=== PATIENT | female | born 1980 | race Caucasian/White ===

== ENCOUNTER 2017-04-21 23:33 | Emergency (ER) | payer MEDICAID, SELFPAY ==
[2017-04-21 23:35] VITALS: BP 129/80; PULSE 110; RESP 17; TEMP 36.6; O2SAT 97; BMI 30.4
--- NOTE | 2017-04-21 23:48 | RAD_ITS ---
STUDY: X-RAY CHEST REASON FOR EXAM: Female, 36 years old. Cough x3-4 weeks. TECHNIQUE: PA and lateral views of the chest. COMPARISON: 11/19/2016. 02/07/2015. FINDINGS: Stable moderate elevation of the left hemidiaphragm with a little presumed scarring adjacent to the diaphragm. The lungs are clear and expanded. There is no demonstrated pleural abnormality. Normal size heart. Normal mediastinum and carly. Normal visualized pulmonary arteries. Normal visualized aortic arch and descending thoracic aorta. Normal visualized thoracic spine. Normal visualized ribs, clavicles, and shoulders. There is no demonstrated abnormality of the visualized soft tissue structures of the upper abdomen. RAD/Chest PA and Lateral IMPRESSION: No pulmonary edema, congestive heart failure or confluent pneumonia. Stable elevation left hemidiaphragm with scarring in the left base. Electronically Signed: Randi Montiel MD at 0:51 EST , Service support ,
--- NOTE | 2017-04-22 00:56 | ED.VISSUMM ---
- ER Visit Summary Date of Service: 04/22/17 Chief Complaint: Abscess and cough History of Present Illness: The patient is a 36 F who complains of a pimple on the right side of her forehead above her eyebrow for the past 3-4 days. She is concerned because she has a history of MRSA. She states she is squeezed it but it is not draining. She has also had a cough for about 4 weeks. She did complete antibiotics. She denies any sputum. She has had some nausea without vomiting. She denies chest pain or shortness of breath. She does complain of sore throat and a fever last night of 102.4. Physical Examination: Heart rate 110 vitals otherwise normal Patient does have a small superficial abscess in the right forehead above the eyebrow nonfluctuant no drainage no surrounding cellulitis Heart regular rhythm tachycardia Lungs are clear I do not appreciate rales rhonchi or wheezes Abdomen soft Test Results: Chest x-ray shows stable elevation of the left hemidiaphragm but no focal infiltrate or consolidation. Emergency Department Course and Treatment: Patient was prescribed Keflex and Bactrim for her forehead abscess. It is superficial and not fluctuant. I do not believe incision and drainage indicated at this time. She is a smoker. Her persistent cough is likely related to bronchitis. There is no focal pneumonia. She was instructed on supportive care and smoking cessation. Treatment Plan: [] Disposition: Discharge Impression: Bronchitis Facial abscess This note was generated with [employer] dictation software. It may contain incorrect words, spelling, and punctuation that were not noted in review of the chart prior to signing ED Disposition - Plan for ED Patient: Chief Complaint: Cough Referrals: Tomas Reyes MD [Primary Care Provider] -
--- NOTE | 2017-04-22 00:58 | ED.DEP ---
ED Disposition - Plan for ED Patient: Chief Complaint: Cough Instructions: Acute Bronchitis, ED Staph Infec Abx Tx Only Prescriptions: Cephalexin [Keflex] 500 mg PO Q6 #40 cap Smz/Tmp Ds [Bactrim Ds] 1 tab PO BID #20 tab Referrals: Tomas Reyes MD [Primary Care Provider] -
[2017-04-22 01:15] VITALS: O2SAT 100
[2017-04-22 01:16] VITALS: BP 140/91; PULSE 106; RESP 18; O2SAT 99
== END 2017-04-22 01:17 | disposition home or self-care (01) ==
PROVIDERS: Emergency Provider Emergency Medicine; Family Provider Family Medicine; PCP Family Medicine
DX: L02.01 Cutaneous abscess of face (principal); J40 Bronchitis, not specified as acute or chronic; F17.200 Nicotine dependence, unspecified, uncomplicated; Z86.14 Personal history of Methicillin resistant Staphylococcus aureus infection
CPT/HCPCS: 71046; 99282

== ENCOUNTER 2017-06-17 12:28 | Outpatient (REF) | payer SELFPAY | END 2017-06-17 15:30 | disposition home or self-care (01) | LOC: ED 12:28 | DX: Z04.41 Encounter for examination and observation following alleged adult rape (principal) ==

== ENCOUNTER 2017-06-17 13:35 | Emergency (ER) | payer MEDICAID, SELFPAY ==
[2017-06-17 13:52] VITALS: BP 132/107; PULSE 76; RESP 16; TEMP 36.6; O2SAT 95; BMI 29.5
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
--- NOTE | 2017-06-17 14:12 | RAD_ITS ---
STUDY: X-RAY - RIGHT HUMERUS REASON FOR EXAM: Female, 36 years old. Pain. TECHNIQUE: 2 view(s) of the humerus. COMPARISON: None. FINDINGS: Normal visualized humerus. There is no demonstrated fracture or osseous destructive process. There is no demonstrated soft tissue abnormality. RAD/Humerus min 2 Views IMPRESSION: Normal x-ray examination of the humerus. Electronically Signed: Josue Dover MD at 14:39 EDT Tel [phone], Service support ,
--- NOTE | 2017-06-17 14:15 | RAD_ITS ---
STUDY: X-RAY - LEFT ELBOW REASON FOR EXAM: Female, 36 years old. Pain. TECHNIQUE: 3 view(s) of the elbow. COMPARISON: None. FINDINGS: Normal visualized humerus, radius and ulna. Normal radiocapitellar and ulnotrochlear articulations. The soft tissue structures are unremarkable. RAD/Elbow min 3 Views IMPRESSION: Normal x-ray examination of the elbow. Electronically Signed: Josue Dover MD at 14:38 EDT Tel [phone], Service support ,
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
[2017-06-17] MEDS: hydrOXYzine PAM 25 MG Capsule PO (16:55)
== END 2017-06-17 16:59 | disposition home or self-care (01) ==
PROVIDERS: Emergency Provider Emergency Medicine
DX: M25.511 Pain in right shoulder (principal); M25.522 Pain in left elbow; L90.5 Scar conditions and fibrosis of skin
CPT/HCPCS: 73060; 73080; 99282

== ENCOUNTER → 2017-06-22 16:11 | Outpatient (CLI) | payer MEDICAID, SELFPAY ==
[2017-06-22 22:01] LABS: Chlamydia Trachomatis by PCR Negative (Negative); Neisserai gonorrhoeae by PCR Negative (Negative); Probe Check PASS; Sample Adequacy Control PASS; Specimen Processing Control PASS
[2017-06-23 09:47] LABS: HIV - WCH Non-Reactive (Nonreactive)
[2017-06-24 08:53] LABS: HEPATITIS B SURFACE AG Negative (Negative); Hep C Antibodies <0.1 s/co ratio (0.0-0.9)
[2017-06-25 05:01] LABS: Rapid Plasmin Reagin (RPR) NONREACTIVE (NONREACTIVE)
== END ==
PROVIDERS: Visit Provider Obstetrics & Gynecology
DX: Z11.3 Encounter for screening for infections with a predominantly sexual mode of transmission (principal)
CPT/HCPCS: 36415; 86592; 86703; 86803; 87340; 87491; 87591

== ENCOUNTER 2017-07-03 10:27 | Emergency (ER) | payer MEDICAID, SELFPAY ==
[2017-07-03 10:28] VITALS: BP 138/91; PULSE 102; RESP 16; TEMP 35.3; O2SAT 99; BMI 30.7
--- NOTE | 2017-07-03 11:16 | ED.VISSUMM ---
- ER Visit Summary Date of Service: 07/03/17 Chief Complaint: Anxiety History of Present Illness: The patient is a 36 F presents for increasing anxiety since this morning. Denies suicidal or homicidal ideations. Patient states history of methamphetamine use for the past 10 months. She has continued to use this over the last 2 days, last used yesterday. States when drug wears off she has anxiety attacks. She states she was seen here June 17 for repeat evaluation. She states she was seen by guy [facility]ak[facility]ie, Adeola Ny, was given a card and was told she was a candidate for inpatient management. She did not call for follow-up. Patient denies any alcohol use. Admits to tobacco. States she had previous opiate abuse with treatment in the past. Denies any recent uses. She states she was in treatment at [facility] in July of last year for her illicit drug use. No treatment since. She does follow [address] [place] [address]. Anxiety and depression history on Cymbalta and BuSpar. Denies any homicidal or suicidal ideations. No auditory or visual hallucinations. She is requesting detox through [facility]. Physical Examination: General: Alert and oriented ?3, no acute distress HEENT: Normocephalic, atraumatic. Moist mucosa membranes Neck: supple, nontender. Cardiovascular: Regular rate and rhythm, no murmurs Respiratory: Normal breath sounds, symmetric, no distress Abdomen: Soft, nontender, nondistended Extremities: Nontender, no edema, pulses intact ?4 Neuro: no focal neurological deficits. Psych: No suicidal ideations. No homicidal ideations. She is tearful, cooperative. Test Results: [] Emergency Department Course and Treatment: Patient not suicidal or homicidal. Patient requesting methamphetamine detox. I am not aware of any protocol for this. Due to patient stating she spoke with Gini & Jonybennie 2 weeks ago. I did discuss with hospitalist, Dr. Hyde. She is also unaware of any protocol. She did evaluate patient in the ED. Discussed with patient treatment plan with mirtazapine and follow with her PCP for adjustments. Patient understands and agrees with plan. She will be discharged with outpatient follow-up. Treatment Plan: [] Disposition: Discharge Impression: 1. Anxiety 2. Methamphetamine use This note was generated with [employer] dictation software. It may contain incorrect words, spelling, and punctuation that were not noted in review of the chart prior to signing ED Disposition - Plan for ED Patient: Disposition: Home or Assisted Living Chief Complaint: Anxiety Diagnosis: Anxiety, Methamphetamine use Instructions: Understanding Methamphetamine Abuse and Addiction, ED Drug Abuse General Prescriptions: Mirtazapine 15 mg PO QHS #30 tab.rapdis Referrals: STEPHEN Rob [Primary Care Provider] - Tomas Reyes MD [STAFF PHYSICIAN] - 3-5 Days
--- NOTE | 2017-07-03 11:19 | ED.DCSUM_ITS ---
- ER Visit Summary Date of Service: 07/03/17 Chief Complaint: Anxiety History of Present Illness: The patient is a 36 F presents for increasing anxiety since this morning. Denies suicidal or homicidal ideations. Patient states history of methamphetamine use for the past 10 months. She has continued to use this over the last 2 days, last used yesterday. States when drug wears off she has anxiety attacks. She states she was seen here June 17 for repeat evaluation. She states she was seen by guy Wellpartnerbennie, Adeola Ny, was given a card and was told she was a candidate for inpatient management. She did not call for follow-up. Patient denies any alcohol use. Admits to tobacco. States she had previous opiate abuse with treatment in the past. Denies any recent uses. She states she was in treatment at [facility] in July of last year for her illicit drug use. No treatment since. She does follow [address] [place] [address]. Anxiety and depression history on Cymbalta and BuSpar. Denies any homicidal or suicidal ideations. No auditory or visual hallucinations. She is requesting detox through [facility]. Physical Examination: General: Alert and oriented ?3, no acute distress HEENT: Normocephalic, atraumatic. Moist mucosa membranes Neck: supple, nontender. Cardiovascular: Regular rate and rhythm, no murmurs Respiratory: Normal breath sounds, symmetric, no distress Abdomen: Soft, nontender, nondistended Extremities: Nontender, no edema, pulses intact ?4 Neuro: no focal neurological deficits. Psych: No suicidal ideations. No homicidal ideations. She is tearful, cooperative. Test Results: [] Emergency Department Course and Treatment: Patient not suicidal or homicidal. Patient requesting methamphetamine detox. I am not aware of any protocol for this. Due to patient stating she spoke with Arkmicrobennie 2 weeks ago. I did discuss with hospitalist, Dr. Hyde. She is also unaware of any protocol. She did evaluate patient in the ED. Discussed with patient treatment plan with mirtazapine and follow with her PCP for adjustments. Patient understands and agrees with plan. She will be discharged with outpatient follow-up. Treatment Plan: [] Disposition: Discharge Impression: 1. Anxiety 2. Methamphetamine use This note was generated with [employer] dictation software. It may contain incorrect words, spelling, and punctuation that were not noted in review of the chart prior to signing ED Disposition - Plan for ED Patient: Disposition: Home or Assisted Living Chief Complaint: Anxiety Diagnosis: Anxiety, Methamphetamine use Instructions: Understanding Methamphetamine Abuse and Addiction, ED Drug Abuse General Prescriptions: Mirtazapine 15 mg PO QHS #30 tab.rapdis Referrals: STEPHEN Rob [Primary Care Provider] - Tomas Reyes MD [STAFF PHYSICIAN] - 3-5 Days
--- NOTE | 2017-07-03 12:03 | PCM.DC ---
- Discharge Diagnoses Current Active Problems: Meth Abuse, Withdrawal Anxiety and Depression Tobacco use Obesity History of Remote Heroin Abuse (Clean since 06/2015) You will use the following diet at home:: No restrictions Your food should be the consistency of: Regular Your liquids should be the consistency of: Regular/Thin Discharge Activity: - - Encourage regular activity daily, improved diet with fresh fruits and vegetables as well as continued aggressive behavioral therapy with [facility]. Call your doctor if you observe: Fever of 101 or Higher, Inability to urinate, Inability to have a bowel movement, Shortness of breath, Dizziness, Chest pain, Uncontrolled pain Instructions: Understanding Methamphetamine Abuse and Addiction, ED Drug Abuse General Additional Instructions: Given you have not been taking your cymbalta this has been taken off your regimen list. You have been started on mirtazapine to assist with treatment of methamphetamine use and concurrent anxiety and depression. Please follow-up with your primary care physician to increase this regimen or alter as needed to achieve best results. It is important that you take your medications as instructed. Also, it is vital that with [facility] you continue cognitive behavioral therapy and initiate an activity pathway: (1) Develop a plan for when you note yourself more likely to attempt usage again, i.e. if you tend to want to use again when you are by yourself or in certain situations, then develop a plan to have an intervention to avoid these situations when needed. (2) Contact [facility] or meth abuse help hotline for discussion when you feel like using again to discuss options and interventions at that time. (3) It is vital that you follow closely with your primary care physician to attempt to improve, evaluate and treatment your psychiatric disorders (anxiety and depression) to assist with healthy behavioral developement to achieve drug free, clean status. Allergies/Adverse Reactions: Allergies No Known Allergies Allergy (Verified 07/03/17 10:27) Medications to take at Discharge busPIRone [Buspar] 15 mg PO DAILY 06/17/17 Mirtazapine 15 mg PO QHS #30 tab.rapdis 07/03/17 The following prescriptions were given: Mirtazapine 15 mg PO QHS #30 tab.rapdis Primary Care Physician: STEPHEN Rob [Primary Care Provider] - Please follow up with your Primary Care Physician in: Follow-up with Dr. Leija within 3-5 days to review ED evaluation. Please Follow Up With: [facility] When: Contact the program upon ED discharge to review recent visit and concerns. Proposed Discharge Date: 07/03/17
--- NOTE | 2017-07-03 12:11 | PCM.CONS.GEN ---
Problem List (1) Anxiety and depression Status: Chronic (2) Tobacco use Status: Chronic (3) Methamphetamine use Status: Acute (4) Heroin use Status: Resolved Comment: Clean from heroin since 06/24/15 Reason for Consult Date of Consultation: 07/03/17 Reason for Consultation: Methamphetamine abuse History of Present Illness: The patient is a 36 y/o F w/ PMHx: Tobacco use, History of Remote Heroine Abuse clean since 06/24/2015, Anxiety and Depression uncontrolled with no SI, Obesity who presents to the [facility] ED on 07/03/17 with history of usage of smoked methamphetamine ~ 20-40 $ daily with recent serial attempts to stop, noted to have been clean intermittently over the last several weeks with periodic relapses following w/ [facility] who notes difficulty with staying clean and request for intervention. Discussed methamphetamine abuse at length with patient and concept that there is no specific acute withdrawal program in the [facility]. Discussed options for outpatient treatment and patient following discussions amenable to start on mirtazapine with dose alterations per PCP at routine follow-up. She had been on cymbalta she notes, recently started but had stopped taking this medication. The importance of taking medications as rx was discussed thoroughly also in light of this admission. She noted that she has been performing CBT with the [facility] but when discussed concepts of safety plans she is unable to give any details. She notes that she is currently in a custody saunders for her daughter and that this stress has been adding to her usage desires. Encouraged safe environments and plan as discussed. Past Medical History Past Medical History (Chronic Problems): Chronic Problems Anxiety and depression (Chronic) Tobacco use (Chronic) Ovarian cyst (Chronic) Pelvic pain (Chronic) Dysmenorrhea (Chronic) Menorrhagia with irregular cycle (Chronic) Allergies No Known Allergies Allergy (Verified 07/03/17 10:27) Home Medications: Ambulatory Orders Medication Instructions Recorded busPIRone [Buspar] 15 mg PO DAILY 06/17/17 Mirtazapine 15 mg PO QHS #30 tab.rapdis 07/03/17 Surgical History: - - Hysterectomy, , right oophorectomy. Psychiatric History: Anxiety, Depression [employer] History: - - History of dysmenorrhea. Lives: Roommate - Patient notes living with a roommate who is supportive and does not use drugs or alcohol. This roommate is currently out of town secondary to loss/illness of family member. Smoking Status: Current every day smoker - Patient notes 1 pack per day tobacco cigarette usage. Tobacco Use: Cigarettes Alcohol: None Drugs: - - Methamphetamines with approximately $30-$40 usage per day, smoked. - *Family History Maternal History Items: - - Patient notes a maternal and paternal family history of heart disease and hypertension. Paternal History Items: - - Patient notes a maternal and paternal family history of heart disease and hypertension. Review of Systems Constitutional: Reports: Anorexia, Malaise, Weakness, Fatigue. Denies: Chills, Fever, Weight Change HEENT: Reports: Head Aches, Post Nasal Drip, Sinus Congestion, Sinus Drainage Cardiovascular: Denies: Chest Pain, Palpitations Respiratory: Reports: Cough. Denies: Shortness of breath at rest, Sputum production Gastrointestinal: Reports: Nausea. Denies: Abdominal Pain, Vomiting Genitourinary: Denies: Dysuria Musculoskeletal: Denies: Joint Pain, Joint Tenderness Skin: Denies: Rash, Wounds Neurological: Denies: Numbness, Tingling, Focal weakness Psychiatric: Reports: Anxiety, Depression. Denies: Homicidal Ideations, Suicidal Ideations Hematologic/ Lymphatic: Denies: Easy Bruising, Easy Bleeding Subjective: Patient seated upright in the ED bed, tearful during examination and discussions, poor insight into current status. Objective: Physical Examination: General: awake, alert, oriented x 3 and cooperative, seated upright in the ED bed in no apparent distress although emotional during examination. Skin: normal color, turgor, no icterus, cyanosis. HEENT: AT/NC, EOMI, PERRLA, mildly dry MM, congested, mild scleral injection suspected from crying. Lungs: CTA bilaterally, moderate effort, mild decrease BL bases, no rales, ronchi or wheezing. Heart: Regular rate and rhythm; no gallop, rub audible. Abdomen: soft, obese, NTTP, ND, normal BS, no HSM. Extremities: no cyanosis, clubbing, or edema. Neurological: patient awake, alert, oriented x 3; cognitive function intact; pupils equally reactive to light and accomodation; cranial nerves II-XII grossly normal, moving all 4 extremities, no focal deficits, strength preserved. Psychiatric: affect appears fatigued, tearful, no SI but notes depressed feelings and anxiety feelings. - Physical Exam Vital Signs Temp Pulse Resp BP Pulse Ox 95.5 F L 102 H 16 138/91 H 99 07/03/17 10:28 07/03/17 10:28 07/03/17 10:07/03/17 10:07/03/17 10:28 Oxygen Delivery Method Room Air Weight: 185 lb Body Mass Index (BMI) 30.7 Assessment/Plan The patient is a 36 y/o F w/ PMHx: Tobacco use, History of Remote Heroine Abuse clean since 06/24/2015, Anxiety and Depression uncontrolled with no SI, Obesity who presents to the [facility] ED on 07/03/17 with history of usage of smoked methamphetamine ~ 20-40 $ daily with recent serial attempts to stop, noted to have been clean intermittently over the last several weeks with periodic relapses following w/ [facility] who notes difficulty with staying clean and request for intervention. (1) Methamphetamine abuse, Withdrawal: Discussed patient's status and usage currently only methamphetamine, already following with [facility], encouraged continuation with program and update to current ED visit. Following discussion with the ED physician and patient will remove Cymbalta from patient home med list as she has not been taking this and start mirtazapine to assist with methamphetamine withdrawal as well as anxiety and depression with close primary care physician follow-up to increased dose slowly. Also discussed importance of cognitive behavioral therapy which can be arranged with primary care physician and [facility]. Discussed concept of safety planning to avoid situations where she is most likely to relapse and importance of developing healthy habits. Patient discharged to home per the emergency room physician at their discretion. (2) Anxiety and depression: Contains currently on BuSpar outpatient, stopped taking her Cymbalta and from discussions not taking it as prescribed. Discussed need to take medications as prescribed at length especially antidepressant medication. Discussed current options and given patient discontinuation of Cymbalta, only recently started will start mirtazapine given concurrent methamphetamine abuse to assist with anxiety and depression as well as withdrawal. Strongly encouraged and advised cognitive behavioral therapy and close follow-up with primary care physician to increase mirtazapine. (3) Tobacco Abuse: Encouraged cessation, inpatient consultation per [facility], NR if desired. (4) Polysubstance abuse, former heroin usage: Notes clean from heroine usage since 06/24/15, encouraged strongly continued avoidance, encouraged HIV, hepatitis assessment with PCP. (5) Obesity: Weight loss and lifestyle changes encouraged. Code Visit Office Visits / Consults: 12533 OP Consult L3 - ED consultation [id number]
[2017-07-03 12:21] VITALS: BP 132/97; PULSE 70; RESP 16; O2SAT 99
== END 2017-07-03 12:38 | disposition home or self-care (01) ==
PROVIDERS: Emergency Provider Emergency Medicine
DX: F41.9 Anxiety disorder, unspecified (principal); F15.93 Other stimulant use, unspecified with withdrawal; F32.9 Major depressive disorder, single episode, unspecified; E66.9 Obesity, unspecified; F19.11 Other psychoactive substance abuse, in remission; F17.210 Nicotine dependence, cigarettes, uncomplicated; Z79.899 Other long term (current) drug therapy
CPT/HCPCS: 99282

== ENCOUNTER 2017-07-04 00:45 | Emergency (ER) | payer MEDICAID, SELFPAY ==
[2017-07-04 00:46] VITALS: BP 145/91; PULSE 110; RESP 15; TEMP 36.7; BMI 30.2
[2017-07-04] MEDS: LORazepam 1 MG Tablet PO (01:28)
--- NOTE | 2017-07-04 01:48 | ED.VISSUMM ---
- ER Visit Summary Date of Service: 07/04/17 Chief Complaint: Anxiety History of Present Illness: The patient is a 36 F presenting for evaluation secondary to anxiety. Patient has a underlying history of methamphetamine use. Patient states that she most recently used today. Patient presented to the emergency department earlier today requesting to be placed in the detox program. After evaluation, the patient was discharged with follow-up with detox, and was placed on Remeron to help with withdrawal symptoms. Patient states that she is having continued anxiety and difficulty sleeping. She states that her medications are not helping. Additionally the patient states that she has a history of skin infections with MRSA and feels that she is having a breakout. She denies any presence of fevers. Patient does endorse depression and anxiety but is not suicidal homicidal or hallucinating. Physical Examination: Vital signs are within normal limits except for tachycardia with a rate of 110, patient is afebrile. General: Patient is well-nourished well-developed and in no acute distress. Head: Normocephalic, atraumatic Eyes: Pupils equal round and reactive bilaterally, extra occular motion intact bialterally ENT: Moist mucous membranes Neck: Supple, no lymphadenopathy, no JVD, no meningismus CVS: Heart regular rhythm with tachycardia, no murmurs, rubs or gallops, radial pulses 2+ bilaterally Resp: Respirations nondistressed, lung sounds clear bilaterally Abdomen: Soft, nontender, nondistended, no palpable masses, normal bowel sounds Back: Nontender Extremities: Nontender, atraumatic, active full range of motion, no peripheral edema Skin: warm, no rashes, no petechia Neuro: Alert and oriented x 4, CN 2-12 intact, no lateralizing neurological defecits Psyc: Normal affect, no suicidal or homicidal ideation Test Results: None indicated Emergency Department Course and Treatment: Patient presented secondary to anxiety. I reviewed patient's records from earlier today, she was evaluated both by the emergency physician as well as the hospitalist, and was discharged on Remeron. Patient was given a take-home dose of Ativan in the emergency department as she did drive herself. Patient does have multiple pockmarks on her skin, she will be placed on doxycycline and Bactroban. Reviewed the dosage recommendations for Remeron, and recommended the patient increase her dose from 15 mg to 30 mg once daily. Patient will follow up with the [facility] program for detox on Wednesday. Disposition: Discharge Impression: 1. Methamphetamine use 2. History of MRSA This note was generated with [employer] dictation software. It may contain incorrect words, spelling, and punctuation that were not noted in review of the chart prior to signing ED Disposition - Plan for ED Patient: Disposition: Home or Assisted Living Chief Complaint: Anxiety Diagnosis: Methamphetamine addiction Instructions: Understanding Methamphetamine Abuse and Addiction Prescriptions: Doxycycline Hyclate 1 tab PO BID #20 cap Mupirocin [Bactroban] 1 applic TOPICAL TID #1 tube Referrals: Tomas Reyes MD [Primary Care Provider] - Additional Instructions: Double your dose or remeron to 30mg nightly Followup [facility] Wednesday
[2017-07-04 02:01] VITALS: PULSE 86; RESP 16; O2SAT 98
== END 2017-07-04 02:01 | disposition home or self-care (01) ==
PROVIDERS: Emergency Provider Emergency Medicine; Family Provider Family Medicine; PCP Family Medicine
DX: F15.90 Other stimulant use, unspecified, uncomplicated (principal); F32.9 Major depressive disorder, single episode, unspecified; F41.9 Anxiety disorder, unspecified; Z79.899 Other long term (current) drug therapy; Z86.14 Personal history of Methicillin resistant Staphylococcus aureus infection
CPT/HCPCS: 99282

== ENCOUNTER 2017-07-06 23:59 | Outpatient (REF) | payer SELFPAY | END 2017-07-07 04:00 | disposition home or self-care (01) | LOC: EDREF 23:59 | DX: Z04.41 Encounter for examination and observation following alleged adult rape (principal) ==

== ENCOUNTER 2017-07-07 01:49 | Emergency (ER) | payer MEDICAID, SELFPAY ==
[2017-07-07 02:30] VITALS: BP 122/78; PULSE 76; RESP 18; TEMP 36.8; O2SAT 97; BMI 24.3
[2017-07-07 02:46] LABS: Absolute Neutrophil Count 1.5 X10^3/uL (2.0-7.7); Basophil# 0.02 X10^3/uL; Basophil% 0.4 % (0-1); Eosinophil# 0.01 X10^3/uL; Eosinophils% 0.2 % (0-5); Hematocrit 40.2 % (37-47); Hemoglobin 13.8 g/dl (12.0-15.0); Mean Corp Hgb Conc 34.3 g/gl (32-36); Mean Corpuscular Volume 90.3 fL (81-99); Mean Platelet Vol. 8.8 fl (6.2-12.0); Monocyte# 0.66 X10^3/uL; Neutrophil % 29.4 % (47-70); Platelet Count 268 K/mm3 (150-450); RBC Distribution Width CV 11.8 % (11.6-14.6); RBC Distribution Width SD 38.7 fl (35.1-43.9); Red Blood Count 4.45 M/mm3 (4.2-5.4); White Blood Count 5.1 K/mm3 (4.4-11.0)
[2017-07-07 02:49] LABS: POSITIVE COUNT NO; POSITIVE DIFFERENTIAL NO; POSITIVE MORPHOLOGY NO
[2017-07-07 02:59] LABS: Amphetamine Urine VISTA POSITIVE (<1000 ng/mL); Barbiturate Urine VISTA NEGATIVE (< 200 ng/mL); Benzodiazepine Urine VISTA POSITIVE (< 200 ng/mL); Cocaine Urine VISTA NEGATIVE (< 300 ng/mL); Ecstacy Urine VISTA POSITIVE (< 500 ng/mL); Methadone Urine VISTA NEGATIVE (< 300 ng/mL); PCP Urine VISTA NEGATIVE (< 25 ng/mL); THC Urine VISTA POSITIVE (< 50 ng/mL); Vista UDS pH Range 5
[2017-07-07 03:09] LABS: AST(SGOT) 9 U/L (15-37); Alanine Aminotransfer ALT/SGPT 19 U/L (13-56); Albumin, Serum 3.8 g/dL (3.2-5.0); Alkaline Phosphatase 84 U/L (45-117); Anion Gap 8 (5-15); BUN 11 mg/dL (7-18); BUN/Creat Ratio 13.7 RATIO (10-20); Calcium,Total 8.9 mg/dL (8.5-10.1); Chloride 104 mmol/L (98-107); EST Glomerular Filtration Rate 85 mL/min (>60); Est Glom Filt Rate - Afr Amer 103 mL/min (>60); Estimated Creatinine Clearance 92.72 ml/min; Globulin 3.7 g/dL (2.2-4.2); Glucose 93 mg/dL (74-106); Potassium 3.3 mmol/L (3.5-5.1); Protein, Total 7.5 g/dL (6.4-8.2); Sodium Level 140 mmol/L (136-145)
[2017-07-07 03:11] LABS: Alcohol, Blood (Medical)-Serum < 3.0 mg/dL
[2017-07-07 03:58] LABS: Pregnancy, Serum, hCG Quali. NEGATIVE Negative (0-9 Nonpreg)
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
[2017-07-07 05:43] VITALS: RESP 16
== END 2017-07-07 05:45 | disposition home or self-care (01) ==
PROVIDERS: Emergency Provider Emergency Medicine; Family Provider Family Medicine; PCP Family Medicine
DX: Z04.41 Encounter for examination and observation following alleged adult rape (principal); F15.20 Other stimulant dependence, uncomplicated; T14.8XXA Other injury of unspecified body region, initial encounter; X58.XXXA Exposure to other specified factors, initial encounter; Y93.9 Activity, unspecified; Y92.9 Unspecified place or not applicable; Y99.9 Unspecified external cause status
CPT/HCPCS: 80053; 80307; 80320; 84703; 85025; 99283; G0480

== ENCOUNTER 2017-08-21 10:44 | Emergency (ER) | payer MEDICAID, SELFPAY ==
[2017-08-21 10:45] VITALS: BP 151/84; PULSE 94; RESP 18; TEMP 36.9; O2SAT 97; BMI 29.3
--- NOTE | 2017-08-21 10:56 | ED.DCSUM_ITS ---
- ER Visit Summary Date of Service: 08/21/17 Chief Complaint: Tooth pain History of Present Illness: The patient is a 36 F who presents with pain after dental extraction. The tooth was extracted 6 days ago. She has pain in that area. She is concerned about some food getting into the area. She does have a history of MRSA. She has been trying ibuprofen 800s without any relief. Denies any fevers. Physical Examination: Vital signs are reviewed. HEENT exam reveals a healing extraction site on the right lower side. There is no abscess noted. No food particulate I can see in the wound. The rest the exam is unremarkable Test Results: [] Emergency Department Course and Treatment: Patient will be given antibiotics as well as naproxen for home. I did give her a syringe to keep the area free of any food particulate. Treatment Plan: [] Disposition: Discharge Impression: Postextraction dental pain This note was generated with [employer] dictation software. It may contain incorrect words, spelling, and punctuation that were not noted in review of the chart prior to signing ED Disposition - Plan for ED Patient: Chief Complaint: Dental Referrals: Tomas Reyes MD [Primary Care Provider] -
--- NOTE | 2017-08-21 10:56 | ED.DEP ---
ED Disposition - Plan for ED Patient: Disposition: Home or Assisted Living Chief Complaint: Dental Instructions: ED Tooth Pain Prescriptions: Naproxen [Naprosyn] 500 mg PO BID PRN #20 tab Clindamycin [Cleocin] 300 mg PO 4X/DAY #80 cap Referrals: Tomas Reyes MD [Primary Care Provider] -
== END 2017-08-21 11:11 | disposition home or self-care (01) ==
LOC: ED 11:03
PROVIDERS: Emergency Provider Emergency Medicine; Family Provider Family Medicine; PCP Family Medicine
DX: K08.89 Other specified disorders of teeth and supporting structures (principal); Z98.818 Other dental procedure status; Z72.0 Tobacco use; Z79.899 Other long term (current) drug therapy; Z86.14 Personal history of Methicillin resistant Staphylococcus aureus infection
CPT/HCPCS: 99282

== ENCOUNTER 2017-09-13 17:48 | Emergency (ER) | payer MEDICAID, SELFPAY ==
[2017-09-13 17:48] VITALS: BP 145/81; PULSE 100; RESP 18; TEMP 36.6; O2SAT 100; BMI 28.7
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
[2017-09-13] MEDS: Naproxen 500 MG Tablet PO (18:37)
--- NOTE | 2017-09-13 19:07 | ED.DCSUM_ITS ---
- ER Visit Summary Date of Service: 09/13/17 Chief Complaint: Left fifth toe pain History of Present Illness: The patient is a [address] Reyes. She reports that she stubbed her left fifth toe on a metal chair today. She is throbbing pain is 9 out of 10 with walking and 7 out of 10 at rest. She is not taking anything for this. She denies any other complaints. Physical Examination: Vitals: Stable. Afebrile. General: Well-nourished and well-developed. Head: Normocephalic atraumatic. Neck: Supple, no lymphadenopathy. No JVD. Nontender. Cardiovascular: Regular rate and rhythm. No murmurs. Respiratory: No respiratory distress. Clear to auscultation bilaterally. Abdominal: Soft, nontender, nondistended, normal bowel sounds. No guarding, rebound, or peritoneal signs. Back: Nontender. Extremities: Mild soft tissue swelling and moderate tenderness palpation to her left fifth toe. There is contusion. Skin: Normal color, no rash. Neurologic: Alert and oriented ?3. Cranial nerves II through XII are intact. Normal strength and sensation. Psych: Normal affect. Test Results: X-ray is negative Emergency Department Course and Treatment: Patient was treated with naproxen. Treatment Plan: Patient be discharged in a postop shoe. Instructed with Dr. Reyes and week if not improving. Disposition: To home in improved and stable condition. Impression: 1. Left fifth toe contusion. This note was generated with [employer] dictation software. It may contain incorrect words, spelling, and punctuation that were not noted in review of the chart prior to signing ED Disposition - Plan for ED Patient: Disposition: Home or Assisted Living Chief Complaint: Lower Extremity Injury Instructions: ED Sprain Toe Prescriptions: Naproxen [Naprosyn] 500 mg PO BID #14 tablet Referrals: Tomas Reyes MD [Primary Care Provider] - 1 Week if not improving
[2017-09-13 19:21] VITALS: RESP 18
== END 2017-09-13 19:21 | disposition home or self-care (01) ==
LOC: ED 18:31
PROVIDERS: Emergency Provider Emergency Medicine; Family Provider Family Medicine; PCP Family Medicine
DX: S90.122A Contusion of left lesser toe(s) without damage to nail, initial encounter (principal); W22.03XA Walked into furniture, initial encounter; Y93.9 Activity, unspecified; Y92.9 Unspecified place or not applicable; Y99.9 Unspecified external cause status; Z72.0 Tobacco use
CPT/HCPCS: 73660; 99283

== ENCOUNTER 2017-09-30 14:00 | Emergency (ER) | payer MEDICAID, SELFPAY ==
[2017-09-30 14:01] VITALS: BP 122/81; PULSE 97; RESP 32; TEMP 37.1; O2SAT 97; BMI 28.7
[2017-09-30 15:03] VITALS: O2SAT 100
--- NOTE | 2017-09-30 15:03 | EKG12_ITS ---
Test Reason : CP Blood Pressure : / mmHG Vent. Rate : 092 BPM Atrial Rate : 092 BPM P-R Int : 122 ms QRS Dur : 098 ms QT Int : 358 ms P-R-T Axes : 023 038 053 degrees QTc Int : 442 ms Normal sinus rhythm Normal ECG Confirmed by BREONNA NORTH, TREMAINE ([id number]), editor & co founder ANGEL FUNK ([id number] on 10/05/2017 2:45:23 PM Referred By: FLOYD Confirmed By:TREMAINE RAVI MD
--- NOTE | 2017-09-30 15:03 | RAD_ITS ---
STUDY: X-RAY CHEST REASON FOR EXAM: Female, 37 years old. Chest pain TECHNIQUE: Single AP portable view of the chest. COMPARISON: 04/21/2017 FINDINGS: Cardiac monitoring leads overlie the chest. There is elevation of the left hemidiaphragm. There is left basilar atelectasis or scar. There is no demonstrated pleural abnormality. Normal size heart. Normal mediastinum and carly. Normal visualized pulmonary arteries. Normal visualized aortic arch and descending thoracic aorta. There is mild dextrocurvature of the thoracic spine. Normal visualized ribs, clavicles, and shoulders. There is no demonstrated abnormality of the visualized soft tissue structures of the upper abdomen. RAD/Chest 1 View (Portable) IMPRESSION: Minimal left basilar atelectasis or scar. Similar elevation of the left hemidiaphragm. Electronically Signed: Dustin Washington DO at 15:23 EDT Tel , Service support ,
--- NOTE | 2017-09-30 15:05 | ED.VISSUMM ---
- ER Visit Summary Date of Service: 09/30/17 Chief Complaint: Chest pain, blisters on feet History of Present Illness: The patient is a 37 F who complains of his pain and blisters on her feet. She has had this pain for 2 days. She describes as a tightness in her sternal area. Does not radiate. Nothing makes it better or worse. She does have associated shortness of breath. She says she has a chronic cough which she describes as chronic bronchitis. She is currently living at the [facility] and really there has a cough. She also complains of these blisters on her feet. She does have a history of MRSA. Physical Examination: Vital signs reviewed. HEENT exam unremarkable. Heart is regular rate and rhythm without murmurs. Lungs are clear to auscultation. Chest is nontender. Abdomen is soft and nontender. Extremities reveal no edema. Peripheral pulses are equal. Skin exam shows some broken blisters on the feet. No drainage or bleeding. No erythema.. Neurologic exam normal. Test Results: EKG is sinus rhythm with rate of 92. No ST changes. Chest x-ray reveals chronic scarring. Labs are normal. Emergency Department Course and Treatment: Patient was given albuterol and aspirin. She feels better after albuterol treatment. Patient will be discharged with an albuterol inhaler. She will follow-up with her PCP. Treatment Plan: [] Disposition: Discharge Impression: Chest pain, chronic bronchitis This note was generated with [employer] software. It may contain incorrect words, spelling, and punctuation that were not noted in review of the chart prior to signing ED Disposition - Plan for ED Patient: Chief Complaint: Chest Pain Referrals: Tomas Reyes MD [STAFF PHYSICIAN] -
[2017-09-30] MEDS: Aspirin 81 MG TAB.CHEW 324 MG PO (15:12)
[2017-09-30 15:14] LABS: Absolute Lymphocyte Count 1.81 X10^3/ul (0.83-4.51); Absolute Neutrophil Count 2.9 X10^3/uL (2.0-7.7); Basophil# 0.02 X10^3/uL; Basophil% 0.4 % (0-1); Eosinophil# 0.04 X10^3/uL; Eosinophils% 0.7 % (0-5); Lymphocyte # 1.81 X10^3/ul (4.0); Lymphocyte % 33.3 % (19-41); Mean Corp Hgb Conc 33.3 g/gl (32-36); Mean Corpuscular Hgb 30.7 pg (27.0-32.0); Mean Corpuscular Volume 92.2 fL (81-99); Mean Platelet Vol. 9.3 fl (6.2-12.0); Monocyte# 0.68 X10^3/uL; Monocyte% 12.5 % (0-10); Neutrophil # 2.88 X10^3/uL (2.7-7.7); Neutrophil % 53.1 % (47-70); Platelet Count 312 K/mm3 (150-450); RBC Distribution Width CV 12.3 % (11.6-14.6); RBC Distribution Width SD 41.4 fl (35.1-43.9); Red Blood Count 4.23 M/mm3 (4.2-5.4); White Blood Count 5.4 K/mm3 (4.4-11.0)
[2017-09-30 15:21] LABS: POSITIVE COUNT NO; POSITIVE DIFFERENTIAL NO; POSITIVE MORPHOLOGY NO
[2017-09-30 15:26] LABS: Anion Gap 6 (5-15); BUN 14 mg/dL (7-18); BUN/Creat Ratio 16.9 RATIO (10-20); Calcium,Total 8.3 mg/dL (8.5-10.1); Chloride 109 mmol/L (98-107); Creatinine, Serum 0.83 mg/dL (0.55-1.02); EST Glomerular Filtration Rate 81 mL/min (>60); Est Glom Filt Rate - Afr Amer 99 mL/min (>60); Estimated Creatinine Clearance 85.19 ml/min; Glucose 78 mg/dL (74-106); Potassium 3.6 mmol/L (3.5-5.1); Sodium Level 143 mmol/L (136-145)
[2017-09-30 15:36] VITALS: PULSE 104; RESP 20
[2017-09-30] MEDS: Albuterol 2.5 MG/3 ML VIAL.NEB. INHALATION (15:36)
--- NOTE | 2017-09-30 15:38 | ED.DEP ---
ED Disposition - Plan for ED Patient: Disposition: Home or Assisted Living Chief Complaint: Chest Pain Instructions: ED Chest Pain NonCardiac Prescriptions: Albuterol Inhaler [Ventolin Hfa] 1 - 2 puff INHALATION Q4H PRN PRN #1 inhaler PRN Reason: Wheezing Referrals: Tomas Reyes MD [STAFF PHYSICIAN] -
[2017-09-30 16:40] VITALS: BP 118/90; PULSE 95; RESP 26; O2SAT 100
== END 2017-09-30 16:42 | disposition home or self-care (01) ==
PROVIDERS: Emergency Provider Emergency Medicine
DX: J42 Unspecified chronic bronchitis (principal); R07.9 Chest pain, unspecified; S90.822A Blister (nonthermal), left foot, initial encounter; S90.821A Blister (nonthermal), right foot, initial encounter; X58.XXXA Exposure to other specified factors, initial encounter; Y93.9 Activity, unspecified; Y92.9 Unspecified place or not applicable; Y99.9 Unspecified external cause status; Z72.0 Tobacco use; Z86.14 Personal history of Methicillin resistant Staphylococcus aureus infection
CPT/HCPCS: 71045; 80048; 84484; 85025; 93005; 94640; 99285; A4216

== ENCOUNTER 2017-10-03 22:05 | Emergency (ER) | payer MEDICAID, SELFPAY ==
[2017-10-03 22:07] VITALS: BP 128/74; PULSE 116; RESP 18; TEMP 36.1; O2SAT 97; BMI 32.1
--- NOTE | 2017-10-03 22:50 | ED.VISSUMM ---
- ER Visit Summary Date of Service: 10/03/17 Chief Complaint: Blisters on my feet History of Present Illness: The patient is a 37 F history of prior psychiatric illness which she denies currently. Also history of marijuana and amphetamine abuse. Patient states that she has blisters on her feet. She says these are not being addressed. [facility]. Currently is homeless. Physical Examination: Well appearing female. Vital signs are stable afebrile. She does not look septic, toxic or in any distress whatsoever. H EENT exam unremarkable well-hydrated. Moist mucous membranes. Neck nontender no lymphadenopathy. Lungs clear to auscultation bilaterally. Heart regular rate and rhythm no murmur rate about 100. Abdomen is soft and nontender normal bowel sounds without peritoneal signs. Moving all 4 extremities. Neurovascularly intact. Calves nontender without edema. She has a few blisters that have ruptured on her feet. There is no signs of infection. Normal range of motion of both upper and lower extremities. Normal strength and sensation. Back exam normal. Neurologically she is awake and alert with no focal motor deficits. Test Results: None Emergency Department Course and Treatment: No labs or workup are necessary. I explained to the patient these blisters just need to be cleaned daily and prevent it from getting infected. Treatment Plan: Discharged with wound care. Disposition: Discharge Impression: Blisters on her feet Malingering This note was generated with [employer] dictation software. It may contain incorrect words, spelling, and punctuation that were not noted in review of the chart prior to signing ED Disposition - Plan for ED Patient: Chief Complaint: General Illness Referrals: Care Physician,No Primary [Primary Care Provider] -
--- NOTE | 2017-10-03 22:53 | ED.DCSUM_ITS ---
- ER Visit Summary Date of Service: 10/03/17 Chief Complaint: Blisters on my feet History of Present Illness: The patient is a 37 F history of prior psychiatric illness which she denies currently. Also history of marijuana and amphetamine abuse. Patient states that she has blisters on her feet. She says these are not being addressed. [facility] was [facility] leave. Currently is homeless. Physical Examination: Well appearing female. Vital signs are stable afebrile. She does not look septic, toxic or in any distress whatsoever. H EENT exam unremarkable well-hydrated. Moist mucous membranes. Neck nontender no lymphadenopathy. Lungs clear to auscultation bilaterally. Heart regular rate and rhythm no murmur rate about 100. Abdomen is soft and nontender normal bowel sounds without peritoneal signs. Moving all 4 extremities. Neurovascularly intact. Calves nontender without edema. She has a few blisters that have ruptured on her feet. There is no signs of infection. Normal range of motion of both upper and lower extremities. Normal strength and sensation. Back exam normal. Neurologically she is awake and alert with no focal motor deficits. Test Results: None Emergency Department Course and Treatment: No labs or workup are necessary. I explained to the patient these blisters just need to be cleaned daily and prevent it from getting infected. Treatment Plan: Discharged with wound care. Disposition: Discharge Impression: Blisters on her feet Malingering This note was generated with [email or web address] dictation software. It may contain incorrect words, spelling, and punctuation that were not noted in review of the chart prior to signing ED Disposition - Plan for ED Patient: Chief Complaint: General Illness Referrals: Care Physician,No Primary [Primary Care Provider] -
--- NOTE | 2017-10-03 22:53 | ED.DEP ---
ED Disposition - Plan for ED Patient: Disposition: Home or Assisted Living Chief Complaint: General Illness Referrals: Tomas Reyes MD [STAFF PHYSICIAN] - As Needed Additional Instructions: Clean blisters daily. Apply antibiotic ointment to prevent infection. Wear clean white socks and change at least once daily.
== END 2017-10-03 22:56 | disposition home or self-care (01) ==
PROVIDERS: Emergency Provider Emergency Medicine
DX: S90.822A Blister (nonthermal), left foot, initial encounter (principal); S90.821A Blister (nonthermal), right foot, initial encounter; X58.XXXA Exposure to other specified factors, initial encounter; Y93.9 Activity, unspecified; Y92.9 Unspecified place or not applicable; Y99.9 Unspecified external cause status; F15.11 Other stimulant abuse, in remission; F12.11 Cannabis abuse, in remission; Z59.0 Homelessness; Z76.5 Malingerer [conscious simulation]; Z72.0 Tobacco use
CPT/HCPCS: 99282

== ENCOUNTER 2019-06-22 10:26 | Emergency (ER) | payer MEDICAID, SELFPAY ==
[2019-06-22 10:26] VITALS: BP 142/106; PULSE 88; RESP 18; TEMP 37.4; O2SAT 98; BMI 34.3
[2019-06-22 10:35] VITALS: BP 142/106; PULSE 88; RESP 18; TEMP 37.4; O2SAT 98
--- NOTE | 2019-06-22 10:44 | ED.DCSUM_ITS ---
History of Present Illness Chief Complaint: Female C/O Informant: Patient Pain: Vaginal Pain Onset: Days - 3 Context: Gradual Onset Quality: - - sore Location: - - vaginal, and suprapubic cramping that radiates into low back nonlateralizing Current Severity: Moderate Maximum Severity: Moderate Worsened by: - - urinating Relieved by: - - not by tylenol, ibuprofen Issue: Negative for: Vaginal bleeding - Vaginal Discharge Onset: Days - 3 Quality: Hernández, Foul smelling Severity: Heavy Associated Symptoms: Dysuria. Negative for: Frequency, Urgency, Hematuria Last known menstrual period: s/p Hyst Sexually: Inactive - not for multiple months Narrative: Patient states she did a douche 3 days ago, she had vaginal burning during it, and subsequently developed a discharge with increased discomfort and the above symptoms. She states she looked in the mirror today and noticed that things were swollen and black. She denies any known fevers. No respiratory symptoms or recent travel out of the area. - Past Medical History (1) Anxiety and depression Status: Chronic Past Medical History - Allergies and Home Meds Allergies/Adverse Reactions: Allergies No Known Allergies Allergy (Verified 06/22/19 10:34) Primary Care Physician: Care Physician,No Primary [NON-STAFF] - Surgical History: - - Hysterectomy, , right oophorectomy. Lives: Alone Smoking Status: Current every day smoker Drugs: Heroin - in past - Family History Maternal Family History: Reports: - - Patient notes a maternal and paternal family history of heart disease and hypertension. Paternal Family History: Reports: - - Patient notes a maternal and paternal family history of heart disease and hypertension. Review of Systems General: Denies: Chills, Fever, Sweats Eyes: Denies: Visual changes - bilaterally, Diplopia ENT: Denies: Rhinorrhea, Sore throat Cardiovascular: Denies: Chest pain, Palpitations Respiratory: Denies: Dyspnea, Cough, Dyspnea on exertion Gastrointestinal: Reports: Abdominal pain. Denies: Nausea, Vomiting, Diarrhea, Melena, Hematochezia Genitourinary: Reports: Dysuria - at urethral meatus, - - vaginal pain and discharge, labial swelling. Denies: Hematuria, Frequency Musculoskeletal: Reports: Back pain. Denies: Neck pain, Extremity Pain Skin: Denies: Rash, Wounds Neurological: Denies: Headache, Weakness, Numbness Physical Exam Vital Signs/Narrative: Vital Signs Temp Pulse Resp BP Pulse Ox 06/22/19 10:26 99.3 F H 88 18 142/106 H 98 Inital Vital Signs reviewed: Yes General: Well nourished, Well developed, - - nad Head: Normocephalic, Atraumatic Eyes: Perrl, EOMI ENT: Moist mucous membranes, No rhinorrhea Neck: Supple, Nontender Cardiovascular: Regular rate, Regular rhythm, No murmurs Respiratory: No distress, CTA bilaterally, Chest nontender Abdomen: Soft, Nontender, Nondistended, Normal bowel sounds : Speculum exam: No vaginal lesions, No blood in vault, No active bleeding, Hernández vaginal discharge, Foul smelling vaginal discharge, - - Significant vaginal wall tenderness and inflammation. No cervix seen although speculum exam somewhat limited due to pain. External genitalia: Labia minora symmetrically swollen and mildly tender. There is some beauchamp-discolored tissue at the superior aspect most likely related to inflammation and discharge presents. There is nothing that is black or necrotic, there is no focal abscess. Labia majora are normal-appearing. Back: Nontender, Normal Inspection. Negative for: CVA tenderness Extremities: Nontender, No edema Skin: Normal color, No rash Neurological: Alert, Oriented x3, Cranial nerves II-XII grossly intact, Normal Strength, Normal Sensation, Normal Gait Psychological: Normal affect, Normal Mood Diagnostic/Tx/Re-eval - Medical Decision/Diagnostic Studies I do not think the patient is a bladder infection, this is obviously vaginitis. I suspect bacterial vaginosis based on the fact that this occurred just after doing a douche. I did send a wet prep, but I do not think we have to wait for the results. We will treat her empirically with Flagyl. I discussed this with her and then she really focused on treatment of her pain. She has a history of heroin use which I discussed with her, which is why I do not think narcotics would be in her best interest for this, since we are treating the cause empirically. She is requesting a medication or 2 that she had in the past, she names tramadol and ketorolac. She wants a prescription for either or both. I advised that I will not be prescribing her tramadol given her history of narcotic use, and I am happy to give her a dose of ketorolac injection here but not as a prescription because she started talking about her back discomfort and worried about my kidney problem returning. She does not have CVA tenderness or symptoms of kidney issues, but given this history that she does not know anything else about specifically, I am certainly not comfortable prescribing her ketorolac to be using as an outpatient. She understood all that. She also states that she wants something topical to put on the affected area in her perineum. I am happy to prescribe her metronidazole to use topically as well but I advised that smearing it on her external genitalia and not injecting it into her vagina would be relatively pointless, and we discussed why. Given the amount of discomfort she states she is in, this is why I recommended oral metr onidazole treatment instead of topical. Advised to follow-up with her [facility] to whom she is referred since she states she does not have one, if her symptoms do not resolve with this treatment. ED Disposition - Plan for ED Patient: Disposition: Home or Assisted Living Diagnosis: Vaginitis Instructions: Vaginal Infection: Bacterial Vaginosis Prescriptions: Metronidazole [Flagyl] 500 mg PO BID #14 tab Prescription Printed Metronidazole [Metrogel Topical] 1 applic TOPICAL QHS 5 Days Prescription Printed Referrals: Julio Cortés MD [STAFF PHYSICIAN] - 1 Week if not improving
[2019-06-22] MEDS: Ketorolac 60 MG/2 ML Vial IM (11:29)
== END 2019-06-22 12:00 | disposition home or self-care (01) ==
PROVIDERS: Emergency Provider Emergency Medicine; PCP Family Medicine
DX: N76.0 Acute vaginitis (principal); F17.200 Nicotine dependence, unspecified, uncomplicated; Z90.710 Acquired absence of both cervix and uterus
CPT/HCPCS: 87210; 96372; 99284

== ENCOUNTER 2019-09-06 10:19 | Emergency (ER) | payer MEDICAID, SELFPAY ==
[2019-09-06 10:21] VITALS: BP 145/115; PULSE 90; RESP 16; TEMP 36.9; O2SAT 98; BMI 38.7
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
[2019-09-06] MEDS: HYDROcodone Bitartrate/Apap 5/325 Tablet PO (10:51)
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
[2019-09-06 12:29] VITALS: BP 127/85; PULSE 76; RESP 15; O2SAT 99
== END 2019-09-06 12:30 | disposition home or self-care (01) ==
PROVIDERS: Emergency Provider Emergency Medicine; PCP Family Medicine
DX: S42.251A Displaced fracture of greater tuberosity of right humerus, initial encounter for closed fracture (principal); M54.2 Cervicalgia; Y04.8XXA Assault by other bodily force, initial encounter; Y93.9 Activity, unspecified; Y92.9 Unspecified place or not applicable; Y99.9 Unspecified external cause status; E66.9 Obesity, unspecified; Z72.0 Tobacco use
CPT/HCPCS: 73030; 73060; 99285

== ENCOUNTER 2019-10-18 18:41 | Emergency (ER) | payer MEDICAID, SELFPAY ==
[2019-10-18 18:43] VITALS: BP 124/86; PULSE 104; RESP 21; TEMP 36.8; O2SAT 92; BMI 43.4
[2019-10-18 18:56] VITALS: BP 123/104; PULSE 104
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
--- NOTE | 2019-10-18 19:09 | EKG12_ITS ---
Test Reason : FALL Blood Pressure : / mmHG Vent. Rate : 107 BPM Atrial Rate : 107 BPM P-R Int : 126 ms QRS Dur : 092 ms QT Int : 338 ms P-R-T Axes : 028 043 147 degrees QTc Int : 451 ms Sinus tachycardia Nonspecific T wave abnormality Abnormal ECG Confirmed by ADRIEL FERNANDES ([id number]), makeup editor MARIA EUGENIA VALLADARES ([id number]) on 10/23/2019 2:16:53 PM Referred By: MOSHE Confirmed By:ADRIEL FERNANDES
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
[2019-10-18] MEDS: fentaNYL 100 MCG/2 ML Ampul 25 MCG IV (19:13)
[2019-10-18] MEDS: 0.9% Normal Saline 1,000 ML 999 ML IV (19:21)
[2019-10-18 19:28] LABS: Absolute Neutrophil Count 4.3 X10^3/uL (2.0-7.7); Basophil# 0.04 X10^3/uL; Basophil% 0.5 % (0-1); Eosinophil# 0.02 X10^3/uL; Eosinophils% 0.2 % (0-5); Hematocrit 42.4 % (37-47); Hemoglobin 14.7 g/dL (12.0-15.0); Lymphocyte % 33.5 % (19-41); Mean Corp Hgb Conc 34.7 g/dL (32-36); Mean Corpuscular Hgb 31.8 pg (27.0-32.0); Mean Corpuscular Volume 91.8 fL (81-99); Mean Platelet Vol. 9.5 fl (6.2-12.0); Monocyte# 1.09 X10^3/uL; NRBC Flagged by Analyzer 0 % (0-5); Neutrophil # 4.34 X10^3/uL (2.7-7.7); Neutrophil % 51.8 % (47-70); Platelet Count 334 K/mm3 (150-450); RBC Distribution Width CV 11.8 % (11.6-14.6); RBC Distribution Width SD 39.3 fl (35.1-43.9); Red Blood Count 4.62 M/mm3 (4.2-5.4); White Blood Count 8.4 K/mm3 (4.4-11.0)
[2019-10-18 19:31] LABS: Internal QC Validated? YES +Cl - CLEAR BKGD; Pregnancy, Serum, hCG Quali. NEGATIVE Negative
[2019-10-18 19:43] LABS: AST(SGOT) 27 U/L (15-37); Alanine Aminotransfer ALT/SGPT 51 U/L (13-56); Albumin, Serum 3.7 g/dL (3.2-5.0); Alkaline Phosphatase 117 U/L (45-117); Anion Gap 6 (5-15); BUN 20 mg/dL (7-18); BUN/Creat Ratio 20.5 RATIO (10-20); Bilirubin, Direct 0.12 mg/dL (0.00-0.30); Calcium,Total 9.2 mg/dL (8.5-10.1); Chloride 108 mmol/L (98-107); Creatinine, Serum 0.97 mg/dL (0.55-1.02); EST Glomerular Filtration Rate 67 mL/min (>60); Est Glom Filt Rate - Afr Amer 81 mL/min (>60); Estimated Creatinine Clearance 71.45 ml/min; Globulin 4.5 g/dL (2.2-4.2); Glucose 89 mg/dL (74-106); Lipase 105 U/L (73-393); Potassium 3.6 mmol/L (3.5-5.1); Protein, Total 8.2 g/dL (6.4-8.2); Sodium Level 143 mmol/L (136-145)
[2019-10-18 20:56] VITALS: BP 124/92; PULSE 100; RESP 16; O2SAT 94
[2019-10-18] MEDS: fentaNYL 100 MCG/2 ML Ampul 50 MCG IV (21:35)
[2019-10-18 22:18] VITALS: BP 118/84; PULSE 113; RESP 16; O2SAT 96
== END 2019-10-18 23:30 | disposition short-term general hospital (02) ==
PROVIDERS: Emergency Provider Emergency Medicine; PCP Family Medicine
DX: S32.441A Displaced fracture of posterior column [ilioischial] of right acetabulum, initial encounter for closed fracture (principal); S32.049A Unspecified fracture of fourth lumbar vertebra, initial encounter for closed fracture; S06.9X9A Unspecified intracranial injury with loss of consciousness of unspecified duration, initial encounter; S30.810A Abrasion of lower back and pelvis, initial encounter; S40.812A Abrasion of left upper arm, initial encounter; V87.8XXA Person injured in other specified noncollision transport accidents involving motor vehicle (traffic), initial encounter; Y93.9 Activity, unspecified; Y92.9 Unspecified place or not applicable; Y99.9 Unspecified external cause status; E04.1 Nontoxic single thyroid nodule; N28.9 Disorder of kidney and ureter, unspecified; Z87.891 Personal history of nicotine dependence
CPT/HCPCS: 70450; 71260; 72125; 74177; 80048; 80076; 83690; 84484; 84703; 85025; 86850; 86900; 86901; 93005; 96361; 96374; 96375; 99285; J7030; Q9967; A4216

== ENCOUNTER 2020-10-15 12:46 | Emergency (ER) | payer MEDICAID, SELFPAY ==
[2020-10-15 12:48] VITALS: BP 113/95; PULSE 111; RESP 28; TEMP 37.2; O2SAT 96; BMI 35.3
--- NOTE | 2020-10-15 13:06 | EKG12_ITS ---
Test Reason : CP Blood Pressure : / mmHG Vent. Rate : 105 BPM Atrial Rate : 105 BPM P-R Int : 114 ms QRS Dur : 084 ms QT Int : 310 ms P-R-T Axes : 018 039 073 degrees QTc Int : 409 ms Sinus tachycardia Otherwise normal ECG Confirmed by LUCIO NORTH, MIKO ([id number]), graphics editor ZACARIAS VAZQUEZ ([id number]) on 10/18/2020 9:19:44 AM Referred By: YAJAIRA Confirmed By:EVELYNE VALDES MD
[2020-10-15 13:18] VITALS: BP 117/84; PULSE 103; RESP 24; O2SAT 96
--- NOTE | 2020-10-15 13:22 | RAD_ITS ---
STUDY: X-RAY CHEST REASON FOR EXAM: Female, 40 years old. cough TECHNIQUE: Single AP portable view of the chest. COMPARISON: 09/30/2017 FINDINGS: The lungs are clear and expanded. Elevated left hemidiaphragm which is unchanged. Normal size heart. Normal mediastinum and carly. Normal visualized pulmonary arteries. Normal visualized aortic arch and descending thoracic aorta. Normal visualized thoracic spine. Normal visualized ribs, clavicles, and shoulders. There is no demonstrated abnormality of the visualized soft tissue structures of the upper abdomen. RAD/Chest 1 View (Portable) IMPRESSION: No active disease. Electronically Signed: Nik Hamilton MD at 13:41 EDT Tel , Service support ,
[2020-10-15 13:23] LABS: Absolute Lymphocyte Count 1.82 X10^3/uL (0.83-4.51); Absolute Neutrophil Count 2.3 X10^3/uL (2.0-7.7); Basophil# 0.02 X10^3/uL; Basophil% 0.4 % (0-1); Eosinophil# 0.01 X10^3/uL; Eosinophils% 0.2 % (0-5); Hematocrit 42.3 % (37-47); Hemoglobin 14.3 g/dL (12.0-15.0); Lymphocyte # 1.82 X10^3/ul (0.83-4.51); Mean Corp Hgb Conc 33.8 g/dL (32-36); Mean Corpuscular Hgb 30.9 pg (27.0-32.0); Mean Corpuscular Volume 91.4 fL (81-99); Mean Platelet Vol. 9.4 fl (6.2-12.0); Monocyte# 1.18 X10^3/uL; Monocyte% 22.1 % (0-10); NRBC Flagged by Analyzer 0 % (0-5); Neutrophil # 2.31 X10^3/uL (2.7-7.7); Neutrophil % 43.1 % (47-70); Platelet Count 254 K/mm3 (150-450); RBC Distribution Width CV 12.2 % (11.6-14.6); RBC Distribution Width SD 40.8 fl (35.1-43.9); Red Blood Count 4.63 M/mm3 (4.2-5.4); White Blood Count 5.4 K/mm3 (4.4-11.0)
--- NOTE | 2020-10-15 13:24 | EDS_ITS ---
HPI History of Present Illness Chief Complaint: General Illness Narrative Narrative: 40-year-old female with symptoms of cough, chills, myalgias since Wednesday. Today is day 4 of symptoms. Patient feels as if she has a subjective fever but she was in care home and did not have her temperature checked. Patient does complain of mild headache. Patient is complaining of chest pain which has been present for 5 days. She describes it as sharp and tight. Patient believes that she may have contracted this while she was in care home and does not believe she had a before she went. She was tested for Covid and is positive. [facility] Medical History Anxiety Depressed Home Medications acetaminophen 650 mg PO Q8H PRN #30 tab 10/15/20 [Rx Last Taken Unknown] duloxetine [Cymbalta] 60 mg PO DAILY 10/15/20 [History Last Taken Unknown] hydroxyzine pamoate [Vistaril] 25 mg PO BID PRN 10/15/20 [History Last Taken U nknown] ibuprofen 600 mg PO Q8H PRN PRN #20 tablet 10/15/20 [Rx Last Taken Unknown] ondansetron HCl [Zofran] 4 mg PO Q8H PRN #14 tab 10/15/20 [Rx Last Taken Unknown] Allergy/AdvReac Type Severity Reaction Status Date / Time No Known Allergies Allergy Verified 10/18/19 18:43 Social History Smoking Status: Current every day smoker tobacco type: cigarettes ROS ROS ED Constitutional Constitutional ED: Reports chills, fever(s) and subjective Eyes Eyes: Denies blurry vision or diplopia ENT ENT ED: Reports rhinorrhea; Denies sore throat Cardiovascular Cardiovascular: Reports chest pain; Denies palpitations Respiratory/Chest Respiratory/Chest: Reports cough and dyspnea Gastrointestinal Gastrointestinal: Reports diarrhea; Denies abdominal pain, nausea or vomiting Genitourinary Genitourinary ED: Denies dysuria or hematuria Musculoskeletal Musculoskeletal: Reports myalgias; Denies arthralgias or neck pain Integumentary Denies Abrasions or rash Neurologic Neurologic: Reports headache(s); Denies paresthesias or weakness Psychiatric Psychiatric: Denies anxiety or depression EXAM Physical Exam Const Vital Signs: 10/15/20 12:48 10/15/20 13:18 10/15/20 13:19 Temperature 98.9 F Temperature Source Temporal Pulse Rate 111 H 103 H Respiratory Rate 28 H 24 H Respiratory Effort Normal Non-Labored Respiratory Pattern Tachypnea Blood Pressure 113/95 H 117/84 H Blood Pressure Mean 101 95 Pulse Ox 96 96 Oxygen Delivery Method Room Air Room Air Positive well nourished General Appearance ED: NAD; Negative for pallor HEENT Reports moist mucous membranes Negative for trauma Eyes PERRL and EOMs intact bilaterally General Eye ED: Negative for pale conjunctiva or scleral icterus Neck no lymphadenopathy and supple Resp normal respiratory effort and clear to auscultation bilaterally Cardio regular rhythm Rate: tachycardic GI normal to inspection, nondistended, normoactive bowel sounds Extremity normal to inspection General Extremety ED: Negative for edema or tenderness General Extremity: Negative for edema Neuro oriented x3 and CN's II-XII intact bilaterally Sensorium / Orientation: alert Motor Exam: strength 5/5 throughout Psych mental status grossly normal Skin no rashes or lesions noted and no wounds General Skin Exam: Negative for jaundice or pallor MDM MDM MDM Narrative Medical decision making narrative: Patient presenting with viral symptoms and has previously been diagnosed with COVID-19. Her symptoms started on Wednesday while she was in care home. Patient was healthy prior to this. Patient's lab work- up is unremarkable. Troponin is negative after 4 days of discomfort and I do not believe she needs a repeat troponin. Chest x-ray on my interpretation shows no acute cardiopulmonary process and radiologist does agree. EKG is sinus rhythm at 105 bpm without signs of ST elevation, depression, ischemic change. I do not believe patient needs retested for Covid. She is slightly tachypneic but not hypoxic. She is afebrile. Patient did have a CTA of the chest given her tachycardia and recent Covid diagnosis and this is negative for acute findings. Patient was discharged home with Tylenol and ibuprofen prescriptions at her request. She is also given Zofran should she develop nausea. Patient is counseled to hydrate well quarantining. She is given strict return precautions. Impression: 1. History of COVID-19 think pneumonitis 2. Chest pain Lab Data Attestation: I reviewed the patient's lab results. Labs: Laboratory Results - last 24 hr 10/15/20 10/15/20 13:15 13:15 WBC 5.4 RBC 4.63 Hgb 14.3 Hct 42.3 MCV 91.4 MCH 30.9 MCHC 33.8 RDW Std Deviation 40.8 RDW Coeff of [place] 12.2 Plt Count 254 MPV 9.4 Immature Gran % (Auto) 0.200 Neut % (Auto) 43.1 L Lymph % (Auto) 34.0 [place] % (Auto) 22.1 H Eos % (Auto) 0.2 Baso % (Auto) 0.4 Absolute Neuts (auto) 2.3 Absolute Lymphs (auto) 1.82 Nucleated RBC % 0 Sodium 139 Potassium 3.5 Chloride 107 Carbon Dioxide 26.0 Anion Gap 6 BUN 16 Creatinine 0.78 Estim Creat Clear Calc 87.96 Est GFR (MDRD) Af Amer 104 Est GFR (MDRD) Non-Af 86 BUN/Creatinine Ratio 20.6 H Glucose 109 H Calcium 8.0 L Total Bilirubin 0.20 AST 19 ALT 29 Alkaline Phosphatase 112 Troponin I High Sens 4.6 Total Protein 7.6 Albumin 3.4 Globulin 4.2 Albumin/Globulin Ratio 0.8 L Radiography Diagnostic Testing: Radiology Impression Chest X-Ray 10/15/20 13:22 IMPRESSION: No active disease. Electronically Signed: Nik Hamilton MD at 13:41 EDT Tel , Service support , Chest CTA 10/15/20 13:39 IMPRESSION: Normal CTA chest examination, without a demonstrated pulmonary embolism or arterial dissection. Electronically Signed: Nik Hamilton MD at 14:55 EDT Tel , Service support , Discharge Plan Triage Chief Complaint: General Illness ED Provider: Franklyn Siddiqui Dx/Rx/DC Orders Instructions: Coronavirus Disease 2019 (COVID-19): Caring for Yourself or Others Prescriptions: New acetaminophen 650 mg tablet extended release 650 mg PO Q8H PRN (Reason: fever or pain) Qty: 30 RF: 0 ibuprofen 600 mg tablet 600 mg PO Q8H PRN PRN (Reason: fever or pain) Qty: 20 RF: 0 ondansetron HCl [Zofran] 4 mg tablet 4 mg PO Q8H PRN (Reason: nausea and vomiting) Qty: 14 RF: 0 No Action hydroxyzine pamoate [Vistaril] 25 mg Capsule 25 mg PO BID PRN (Reason: Anxiety) RF: 0 duloxetine [Cymbalta] 60 mg Capsule,Delayed Release(Dr/Ec) 60 mg PO DAILY RF: 0 Primary Care Provider: Tomas Reyes Referrals: Tomas Reyes MD [Primary Care Provider] - Disposition Disposition: Home, Self Care
--- NOTE | 2020-10-15 13:39 | CT_ITS ---
STUDY: CTA CHEST REASON FOR EXAM: Female, 40 years old. chest pain RADIATION DOSAGE (If Supplied By Facility): CTDIvol = ( 11.83 ) mGy, DLP = ( 397.68 ) mGycm TECHNIQUE: The examination was performed with the intravenous administration of IV 100mL Isovue-370. Post-processing of the angiographic images was performed, with multiplanar reformation and 3D reconstruction. Individualized dose optimization techniques were used for this CT. COMPARISON: Chest x-ray earlier today, CT 10/18/2019 FINDINGS: Normal enhancement of the main pulmonary artery and right and left pulmonary arteries. Normal enhancement of the bilateral peripheral pulmonary arteries. There is no demonstrated pulmonary embolism. Normal thoracic aorta and visualized great vessels. There is no demonstrated aortic dissection. Normal heart and pericardium. Normal mediastinum. Normal hilar regions. Normal visualized trachea and bronchi. The lungs are well expanded. Normal pulmonary parenchyma. Elevated left hemidiaphragm. Normal chest wall structures. Normal osseous structures. Normal visualized upper abdomen. CT/CTA Chest W/WO Contrast IMPRESSION: Normal CTA chest examination, without a demonstrated pulmonary embolism or arterial dissection. Electronically Signed: Nik Hamilton MD at 14:55 EDT Tel , Service support ,
[2020-10-15 13:41] LABS: ALB/GLOB Ratio 0.8 RATIO (0.9-2.4); AST(SGOT) 19 U/L (15-37); Alanine Aminotransfer ALT/SGPT 29 U/L (13-56); Albumin, Serum 3.4 g/dL (3.2-5.0); Alkaline Phosphatase 112 U/L (45-117); Anion Gap 6 (5-15); BUN 16 mg/dL (7-18); BUN/Creat Ratio 20.6 RATIO (10-20); Chloride 107 mmol/L (98-107); Creatinine, Serum 0.78 mg/dL (0.55-1.02); EST Glomerular Filtration Rate 86 mL/min (>60); Est Glom Filt Rate - Afr Amer 104 mL/min (>60); Estimated Creatinine Clearance 87.96 ml/min; Globulin 4.2 g/dL (2.2-4.2); Glucose 109 mg/dL (74-106); Potassium 3.5 mmol/L (3.5-5.1); Protein, Total 7.6 g/dL (6.4-8.2); Sodium Level 139 mmol/L (136-145); Troponin-I HS 4.6 pg/mL (3.0-53.7)
[2020-10-15 15:24] VITALS: BP 121/73; PULSE 78; RESP 18; O2SAT 97
[2020-10-15 15:27] LABS: Procalcitonin 0.04 ng/mL (0.00-0.09)
== END 2020-10-15 15:25 | disposition home or self-care (01) ==
PROVIDERS: Emergency Provider Student in an Organized Health Care Education/Training Program; PCP Family Medicine
DX: U07.1 COVID-19 (principal); F32.9 Major depressive disorder, single episode, unspecified; F41.9 Anxiety disorder, unspecified; F17.210 Nicotine dependence, cigarettes, uncomplicated; Z79.899 Other long term (current) drug therapy
CPT/HCPCS: 71045; 71275; 80053; 84145; 84484; 85025; 93005; 99285; Q9967

== ENCOUNTER 2020-10-29 12:15 | Emergency (ER) | payer MEDICAID, SELFPAY ==
[2020-10-29 12:19] VITALS: BP 117/92; PULSE 63; PULSE 97; RESP 18; TEMP 36.3; O2SAT 100; O2SAT 97; BMI 29.2
[2020-10-29 12:22] VITALS: BP 117/92; PULSE 91; RESP 17; TEMP 36.3; O2SAT 96
--- NOTE | 2020-10-29 12:57 | CT_ITS ---
STUDY: CTA CHEST REASON FOR EXAM: Female, 40 years old. Hemoptysis. Chest pain and shortness of breath. Cough. RADIATION DOSAGE (If Supplied By Facility): CTDIvol = ( 11.35 ) mGy, DLP = ( 488.33 ) mGycm TECHNIQUE: The examination was performed with the intravenous administration of IV 100mL Isovue-370. Post-processing of the angiographic images was performed, with multiplanar reformation and 3D reconstruction. Individualized dose optimization techniques were used for this CT. COMPARISON: Comparison is made with prior examination dated 10/15/2020. FINDINGS: Stable small benign-appearing bilateral axillary lymph nodes. There is evidence of nonocclusive intraluminal filling defects in branches of the right upper lobe pulmonary arterial branches in keeping with acute pulmonary emboli. Normal thoracic aorta and visualized great vessels. There is no demonstrated aortic dissection. Normal heart and pericardium. Normal mediastinum. Normal hilar regions. Normal visualized trachea and bronchi. There is a marked degree of elevation of the left hemidiaphragm. Normal pulmonary parenchyma. Normal pleura. Normal chest wall structures. There are degenerative changes of thoracic spine. Normal visualized upper abdomen. CT/CTA Chest W/WO Contrast IMPRESSION: Multiple pulmonary emboli in branches of the right upper lobe pulmonary artery. Marked degree of the elevation of the left hemidiaphragm. Electronically Signed: Josue Dover MD at 15:19 EDT , Service support ,
--- NOTE | 2020-10-29 12:58 | EKG12_ITS ---
Test Reason : CHEST PAIN Blood Pressure : / mmHG Vent. Rate : 092 BPM Atrial Rate : 092 BPM P-R Int : 134 ms QRS Dur : 098 ms QT Int : 376 ms P-R-T Axes : 019 036 077 degrees QTc Int : 464 ms Normal sinus rhythm Normal ECG Confirmed by BREONNA NORTH, TREMAINE ([id number]), marketing editor ZACARIAS VAZQUEZ ([id number]) on 10/31/2020 9:57:52 AM Referred By: RAMYA Confirmed By:TREMAINE RAVI MD
--- NOTE | 2020-10-29 12:59 | EDS_ITS ---
HPI History of Present Illness Chief Complaint: Shortness of Breath Informant: patient Narrative Narrative: 40-year-old female arriving by EMS for the evaluation of dyspnea. Patient states that she was sick for about 3 days and then diagnosed with COVID- 19 on the 14 October. She was seen in the emergency room on the and discharged home. She states that she still feels about the same. She notes cough and shortness of breath and chest pains. She notes diarrhea. She feels fatigued. Today she was having coughing fits and coughed up some bright red blood. She called her doctor's office and they recommended that she come back to emergency. Patient also states that she is feeling that she has having a MRSA outbreak on her face noting multiple small pustules that have come about since she has been sick. [facility] Medical History Anxiety Depressed Home Medications acetaminophen 650 mg PO Q8H PRN #30 tab 10/15/20 [Rx Last Taken Unknown] duloxetine [Cymbalta] 60 mg PO DAILY 10/15/20 [History Last Taken Unknown] hydroxyzine pamoate [Vistaril] 25 mg PO BID PRN 10/15/20 [History Last Taken Unknown] ibuprofen 600 mg PO Q8H PRN PRN #20 tablet 10/15/20 [Rx Last Taken Unknown] ondansetron HCl [Zofran] 4 mg PO Q8H PRN #14 tab 10/15/20 [Rx Last Taken Unknown] apixaban [Eliquis] 5 mg PO BID #74 tab 10/29/20 [Rx Last Taken Unknown] buprenorphine-naloxone 1 film BUCCAL BID 10/29/20 [History Last Taken Unknown] sulfamethoxazole-trimethoprim 1 tab PO BID #14 tablet 10/29/20 [Rx Last Taken Unknown] Allergy/AdvReac Type Severity Reaction Status Date / Time No Known Allergies Allergy Verified 10/29/20 12:19 Social History (Updated 10/29/20 @ 12:[address] Darinel Ewing DO) Smoking Status: Current every day smoker tobacco type: cigarettes substance use type: does not use ROS ROS ED ROS Narrative Generalized fatigue Constitutional Constitutional ED: Reports chills, fever(s) and sweats; Denies weight loss Eyes Eyes: Denies change in vision or diplopia ENT ENT ED: Reports rhinorrhea; Denies ear pain or sore throat Cardiovascular Cardiovascular: Reports chest pain; Denies orthopnea, palpitations or racing heartbeat Respiratory/Chest Respiratory/Chest: Reports cough, dyspnea, dyspnea on exertion and other Details: Hemoptysis ; Denies orthopnea Gastrointestinal Gastrointestinal: Reports diarrhea and nausea; Denies abdominal pain or vomiting Genitourinary Genitourinary ED: Denies dysuria, hematuria or urinary frequency Musculoskeletal Musculoskeletal: Reports myalgias; Denies arthralgias Integumentary Denies abscess or rash Neurologic Neurologic: Reports headache(s); Denies weakness Psychiatric Psychiatric: Denies anxiety, depression, suicidal ideation or suicidal thoughts Endocrine Endocrinology: Denies polydipsia, polyphagia or polyuria Allergic/Immunologic Allergic/Immunologic ED: Denies mouth swelling, tongue swelling or urticaria EXAM Physical Exam Const Vital Signs: 10/29/20 12:19 10/29/20 12:22 10/29/20 12:32 Temperature 97.4 F L 97.4 F L Temperature Source Temporal Temporal Pulse Rate 97 91 Respiratory Rate 18 17 Respiratory Effort Non-Labored Short of Breath Blood Pressure 117/92 H 117/92 H Blood Pressure Mean 100 100 Pulse Ox 97 96 Oxygen Delivery Method Room Air Room Air 10/29/20 12:34 10/29/20 15:15 Temperature Temperature Source Pulse Rate 90 Respiratory Rate 18 Respiratory Effort Non-Labored Short of Breath Blood Pressure 134/89 H Blood Pressure Mean 104 Pulse Ox 100 Oxygen Delivery Method Positive well nourished, well developed and obese General Appearance ED: well developed Nutritional Appearance: obese HEENT Reports normocephalic, head/scalp atraumatic and moist mucous membranes Eyes PERRL and EOMs intact bilaterally Neck no lymphadenopathy, supple and no JVD Resp normal respiratory effort and clear to auscultation bilaterally Cardio regular rate, regular rhythm and no murmurs GI normal to inspection, nondistended, normoactive bowel sounds and non-tender Palpation: soft Back/Spine no CVA tenderness and normal ROM Extremity normal to inspection General Extremety ED: Negative for edema General Extremity: Negative for edema Neuro oriented x3 and CN's II-XII intact bilaterally Sensorium / Orientation: alert Motor Exam: strength 5/5 throughout Psych mental status grossly normal Mood & Affect: Negative for depressed or tearful Skin no rashes or lesions noted and no wounds MDM MDM MDM Narrative Medical decision making narrative: White count is normal at 6.3. Troponin is 5. CT the chest demonstrates multiple nonocclusive pulmonary embolisms. I do not see evidence of right heart strain. Patient will be started on Eliquis. Also write for some Bactrim for her facial pustules. Lab Data Attestation: I reviewed the patient's lab results. Labs: Laboratory Results - last 24 hr 10/29/20 10/29/20 13:40 13:40 WBC 6.3 RBC 4.43 Hgb 13.6 Hct 40.0 MCV 90.3 MCH 30.7 MCHC 34.0 RDW Std Deviation 39.5 RDW Coeff of [place] 12.1 Plt Count 399 MPV 8.8 Immature Gran % (Auto) 0.200 Neut % (Auto) 48.1 Lymph % (Auto) 37.1 [place] % (Auto) 13.6 H Eos % (Auto) 0.5 Baso % (Auto) 0.5 Absolute Neuts (auto) 3.1 Absolute Lymphs (auto) 2.35 Nucleated RBC % 0 Sodium 137 Potassium 3.6 Chloride 102 Carbon Dioxide 31.0 Anion Gap 4 L BUN 10 Creatinine 0.53 L Estim Creat Clear Calc 134.47 Est GFR (MDRD) Af Amer 163 Est GFR (MDRD) Non-Af 135 BUN/Creatinine Ratio 18.9 Glucose 91 Calcium 9.2 Total Bilirubin 0.40 AST 14 L ALT 28 Alkaline Phosphatase 121 H Troponin I High Sens 5 Total Protein 8.2 Albumin 3.6 Globulin 4.6 H Albumin/Globulin Ratio 0.8 L Radiography Diagnostic Testing: Radiology Impression Chest CTA 10/29/20 12:57 IMPRESSION: Multiple pulmonary emboli in branches of the right upper lobe pulmonary artery. Marked degree of the elevation of the left hemidiaphragm. Electronically Signed: Josue Dover MD at 15:19 EDT , Service support , EKG Initial EKG: Attestation: I personally reviewed and interpreted this EKG as follows: Comments: Normal sinus rhythm ventricular rate of 92 bpm Discharge Plan Triage Chief Complaint: Shortness of Breath ED Provider: Darinel Ewing Dx/Rx/DC Orders Clinical Impression: Pulmonary emboli Instructions: Pulmonary Embolism Prescriptions: New Eliquis 5 MG tablet 5 mg PO BID Qty: 74 RF: 0 sulfamethoxazole-trimethoprim [sulfamethoxazole-trimethoprim] 1 TABLET tablet 1 tab PO BID Qty: 14 RF: 0 No Action hydroxyzine pamoate [Vistaril] 25 mg Capsule 25 mg PO BID PRN (Reason: Anxiety) RF: 0 duloxetine [Cymbalta] 60 mg Capsule,Delayed Release(Dr/Ec) 60 mg PO DAILY RF: 0 acetaminophen 650 mg tablet extended release 650 mg PO Q8H PRN (Reason: fever or pain) Qty: 30 RF: 0 ibuprofen 600 mg tablet 600 mg PO Q8H PRN PRN (Reason: fever or pain) Qty: 20 RF: 0 ondansetron HCl [Zofran] 4 mg tablet 4 mg PO Q8H PRN (Reason: nausea and vomiting) Qty: 14 RF: 0 buprenorphine-naloxone 2-0.5 mg film 1 film buccal BID RF: 0 Primary Care Provider: Tomas Reyes Referrals: Tomas Reyes MD [Primary Care Provider] - 1 Week Disposition Disposition: Home, Self Care
[2020-10-29 13:49] LABS: Absolute Lymphocyte Count 2.35 X10^3/uL (0.83-4.51); Absolute Neutrophil Count 3.1 X10^3/uL (2.0-7.7); Basophil# 0.03 X10^3/uL; Basophil% 0.5 % (0-1); Eosinophil# 0.03 X10^3/uL; Eosinophils% 0.5 % (0-5); Hemoglobin 13.6 g/dL (12.0-15.0); Lymphocyte # 2.35 X10^3/ul (0.83-4.51); Lymphocyte % 37.1 % (19-41); Mean Corpuscular Hgb 30.7 pg (27.0-32.0); Mean Corpuscular Volume 90.3 fL (81-99); Mean Platelet Vol. 8.8 fl (6.2-12.0); Monocyte# 0.86 X10^3/uL; Monocyte% 13.6 % (0-10); NRBC Flagged by Analyzer 0 % (0-5); Neutrophil # 3.06 X10^3/uL (2.7-7.7); Neutrophil % 48.1 % (47-70); Platelet Count 399 K/mm3 (150-450); RBC Distribution Width CV 12.1 % (11.6-14.6); RBC Distribution Width SD 39.5 fl (35.1-43.9); Red Blood Count 4.43 M/mm3 (4.2-5.4); White Blood Count 6.3 K/mm3 (4.4-11.0)
[2020-10-29 14:07] LABS: ALB/GLOB Ratio 0.8 RATIO (0.9-2.4); AST(SGOT) 14 U/L (15-37); Alanine Aminotransfer ALT/SGPT 28 U/L (13-56); Albumin, Serum 3.6 g/dL (3.2-5.0); Alkaline Phosphatase 121 U/L (45-117); Anion Gap 4 (5-15); BUN 10 mg/dL (7-18); BUN/Creat Ratio 18.9 RATIO (10-20); Calcium,Total 9.2 mg/dL (8.5-10.1); Chloride 102 mmol/L (98-107); Creatinine, Serum 0.53 mg/dL (0.55-1.02); EST Glomerular Filtration Rate 135 mL/min (>60); Est Glom Filt Rate - Afr Amer 163 mL/min (>60); Estimated Creatinine Clearance 134.47 ml/min; Globulin 4.6 g/dL (2.2-4.2); Glucose 91 mg/dL (74-106); Potassium 3.6 mmol/L (3.5-5.1); Protein, Total 8.2 g/dL (6.4-8.2); Sodium Level 137 mmol/L (136-145); Troponin-I HS 5 pg/mL (3.0-54.0)
[2020-10-29 15:15] VITALS: BP 134/89; PULSE 90; RESP 18; O2SAT 100
[2020-10-29 16:12] VITALS: BP 139/87; PULSE 98; RESP 18; O2SAT 96
== END 2020-10-29 16:17 | disposition home or self-care (01) ==
PROVIDERS: Emergency Provider Emergency Medicine; PCP Family Medicine
DX: I26.99 Other pulmonary embolism without acute cor pulmonale (principal); R04.2 Hemoptysis; L08.9 Local infection of the skin and subcutaneous tissue, unspecified; R19.7 Diarrhea, unspecified; R53.83 Other fatigue; F32.9 Major depressive disorder, single episode, unspecified; F41.9 Anxiety disorder, unspecified; E66.9 Obesity, unspecified; F17.210 Nicotine dependence, cigarettes, uncomplicated; Z79.01 Long term (current) use of anticoagulants; Z79.899 Other long term (current) drug therapy; Z86.16 Personal history of COVID-19
CPT/HCPCS: 71275; 80053; 84484; 85025; 93005; 99285; Q9967; A4216

== ENCOUNTER → 2020-12-03 08:30 | Outpatient (CLI) | payer MEDICAID, SELFPAY ==
[2020-12-03 09:42] LABS: AST(SGOT) 17 U/L (15-37); Alanine Aminotransfer ALT/SGPT 33 U/L (13-56); Albumin, Serum 3.4 g/dL (3.2-5.0); Alkaline Phosphatase 97 U/L (45-117); Globulin 4.3 g/dL (2.2-4.2); Protein, Total 7.7 g/dL (6.4-8.2)
[2020-12-03 10:38] LABS: Hepatitis B Surface Antigen Non-Reactive (Nonreactive); Hepatitis C Antibody Non-Reactive (Nonreactive)
== END ==
PROVIDERS: PCP Family Medicine
DX: R63.0 Anorexia (principal); R53.81 Other malaise; R11.0 Nausea
CPT/HCPCS: 36415; 80076; 86803; 87340

== ENCOUNTER 2020-12-14 11:33 | Emergency (ER) | payer MEDICAID, SELFPAY ==
[2020-12-14] VITALS (7 sets, daily range): BP systolic 120–143; BP diastolic 88–99; PULSE 85–97; RESP 15–24; TEMP 36.6–36.8; O2SAT 98–99; BMI 37.7
--- NOTE | 2020-12-14 12:02 | EKG12_ITS ---
Test Reason : CP Blood Pressure : / mmHG Vent. Rate : 090 BPM Atrial Rate : 087 BPM P-R Int : 126 ms QRS Dur : 082 ms QT Int : 346 ms P-R-T Axes : 023 036 076 degrees QTc Int : 423 ms Normal sinus rhythm Otherwise normal ECG Confirmed by CAIN NORTH, CAT ([id number]), telegraph editor ZACARIAS VAZQUEZ ([id number]) on 12/17/2020 9:39:38 AM Referred By: ABRAM Confirmed By:CAT BARLOW MD
--- NOTE | 2020-12-14 12:03 | VDLE_ITS ---
Reason For Study: Pulmonary Emolism Procedure LEFT This is a venous duplex using B-mode, color GSV is normal. flow and spectral Doppler. Unable to do compressions from groin to mid Exam performed portable in ED. thigh due to PT being ticklish had to rely Technically difficult as PT is very on color doppler. ticklishfrom groin to mid thigh. CFV shows flow with color doppler. A preliminary report was called and/or faxed FV is compressible, spontaneous, phasic, to Dr. Salas @ 1:00 pm. competent and demonstrates normal augmentation. POP V is compressible, spontaneous, phasic, competent and demonstrates normal augmentation. T/P Trunk is compressible. PTV is compressible. LT PerV is compressible. VL/Venous Duplex US, Unilateral Interpretation Summary Deep veins of the left lower extremity are patent. There is no evidence of left lower extremity deep vein thrombosis. Valvular competence appears intact within the proximal deep ve nous system on the left . The left great saphenous vein appears patent and compressible segmentall y. Ordering Physician: Keny Salas Referring Physician: Tomas Reyes Performed By: Alana Beebe, SHANTAL, RVT
[2020-12-14 12:09] LABS: Absolute Lymphocyte Count 2.55 X10^3/uL (0.83-4.51); Absolute Neutrophil Count 2.7 X10^3/uL (2.0-7.7); Basophil# 0.04 X10^3/uL; Basophil% 0.7 % (0-1); Eosinophil# 0.03 X10^3/uL; Eosinophils% 0.5 % (0-5); Hematocrit 42.3 % (37-47); Lymphocyte # 2.55 X10^3/ul (0.83-4.51); Lymphocyte % 42.2 % (19-41); Mean Corp Hgb Conc 33.1 g/dL (32-36); Mean Corpuscular Hgb 30.6 pg (27.0-32.0); Mean Corpuscular Volume 92.6 fL (81-99); Mean Platelet Vol. 9.2 fl (6.2-12.0); Monocyte# 0.75 X10^3/uL; Monocyte% 12.4 % (0-10); NRBC Flagged by Analyzer 0 % (0-5); Neutrophil # 2.66 X10^3/uL (2.7-7.7); Platelet Count 342 K/mm3 (150-450); RBC Distribution Width CV 11.9 % (11.6-14.6); RBC Distribution Width SD 40.8 fl (35.1-43.9); Red Blood Count 4.57 M/mm3 (4.2-5.4)
--- NOTE | 2020-12-14 12:09 | ED.VIS.DYS ---
HPI History of Present Illness Chief Complaint: Shortness of Breath Informant: patient Narrative Narrative: Patient comes in with intermittent chest pain dyspnea for the last week. She also has had some left leg swelling off and on although it is better now. This patient was diagnosed with pulmonary embolus on 29 October. She was placed on Eliquis. That ran out about a month later. She has been trying to get an appointment with her private physicians but there have been issues due to to being out of town. They then called back just in the last day and had to delay the appointment again. She has now been out of meds for about 2 to 2-1/2 weeks. When she first presented she had had some hemoptysis. She now has coughing that is very mild but no hemoptysis. No bleeding in other areas. Nothing specifically makes her symptoms better or worse. They do come and go. It is thought that she had pulmonary embolus secondary to Covid which she had had in early October. She is not having Covid type symptoms now other than the history above. She has no other symptoms. Past medical history: Pulmonary embolus, anxiety, history of heroin abuse only injected for about 2 months. Current medications Suboxone No known allergies No recent surgeries Is a smoker, no longer uses opiates, lives independently. [facility] Medical History Anxiety Depressed Home Medications acetaminophen 650 mg PO Q8H PRN #30 tab 10/15/20 [Rx Last Taken Unknown] ibuprofen 600 mg PO Q8H PRN PRN #20 tablet 10/15/20 [Rx Last Taken Unknown] ondansetron HCl [Zofran] 4 mg PO Q8H PRN #14 tab 10/15/20 [Rx Last Taken Unknown] buprenorphine-naloxone 1 film BUCCAL BID 10/29/20 [History Last Taken Unknown] apixaban [Eliquis] 5 mg PO BID #74 tab 12/14/20 [Rx Last Taken Unknown] nicotine [Nicoderm CQ] 1 patch TRANSDERMAL DAILY #14 ea 12/14/20 [Rx Last Taken Unknown] nicotine [Nicoderm CQ] 1 patch TRANSDERMAL DAILY #14 ea 12/14/20 [Rx Last Taken Unknown] nicotine [Nicoderm CQ] 1 patch TRANSDERMAL Q24H #14 ea 12/14/20 [Rx Last Taken Unknown] Allergy/AdvReac Type Severity Reaction Status Date / Time No Known Allergies Allergy Verified 12/14/20 11:42 Social History Smoking Status: Current every day smoker tobacco type: cigarettes substance use type: does not use ROS ROS ED Constitutional Constitutional ED: Denies chills, fever(s) or sweats Eyes Eyes: Denies blurry vision or change in vision ENT ENT ED: Denies rhinorrhea or sore throat Cardiovascular Cardiovascular: Reports chest pain; Denies palpitations Respiratory/Chest Respiratory/Chest: Reports cough and dyspnea; Denies sputum Gastrointestinal Gastrointestinal: Denies diarrhea, melena, nausea or vomiting Genitourinary Genitourinary ED: Denies hematuria Musculoskeletal Musculoskeletal: Denies myalgias Integumentary Denies rash Neurologic Neurologic: Denies headache(s), paresthesias or weakness Psychiatric Psychiatric: Reports anxiety Endocrine Endocrinology: Denies polydipsia or polyuria Hematologic/Lymphatic Hematologic/Lymphatic: Denies easy bleeding or easy bruising Allergic/Immunologic Allergic/Immunologic ED: Denies urticaria EXAM Physical Exam Const Vital Signs: 12/14/20 11:36 12/14/20 11:56 12/14/20 11:57 Temperature 98.3 F 98.3 F Temperature Source Oral Oral Pulse Rate 92 96 97 Respiratory Rate 15 20 H 20 H Respiratory Effort Respiratory Depth Respiratory Pattern Blood Pressure 120/88 H 123/94 H 123/94 H Blood Pressure Mean 98 103 103 Pulse Ox 98 98 Oxygen Delivery Method Room Air Room Air Room Air 12/14/20 11:59 12/14/20 12:13 12/14/20 13:24 Temperature 98.2 F Temperature Source Oral Pulse Rate 88 Respiratory Rate 22 H Respiratory Effort Normal Respiratory Depth Normal Respiratory Pattern Normal Blood Pressure 139/99 H Blood Pressure Mean 112 Pulse Ox 99 Oxygen Delivery Method Room Air Room Air Room Air 12/14/20 14:49 Temperature 97.9 F Temperature Source Oral Pulse Rate 94 Respiratory Rate 22 H Respiratory Effort Respiratory Depth Respiratory Pattern Blood Pressure 140/99 H Blood Pressure Mean 112 Pulse Ox 99 Oxygen Delivery Method Room Air Patient is comfortable. Her heart rate is about 90. Blood pressure is normal. Oxygen level is 98% on room air. No sign of dyspnea. Positive well nourished and well developed General Appearance ED: well developed and NAD HEENT atraumatic Eyes General Eye ED: Negative for pale conjunctiva or scleral icterus Neck no lymphadenopathy and no meningeal signs Resp normal respiratory effort and clear to auscultation bilaterally Resp Narrative: No pain with a deep breath. Auscultation: Negative for rales, rhonchi or wheezes Cardio regular rate and regular rhythm GI non-tender Palpation: soft Back/Spine no CVA tenderness and normal to inspection Extremity normal to inspection Extremity Narrative: Left leg does not look notably different than the right. Measured 10 cm below the tibial tuberosity the left might be 1 cm larger around. No cord is felt. No distended veins are noted. General Extremety ED: Negative for edema or tenderness General Extremity: Negative for edema Neuro oriented x3 Sensorium / Orientation: alert Psych mental status grossly normal Thought Process: normal thought process Skin Lesions: no lesions Rashes: no rashes MDM MDM MDM Narrative Medical decision making narrative: Patient's blood work shows normal CBC electrolytes. Troponin negative. Chest x-ray is negative. Ultrasound showed no DVT. We used shared decision-making regarding CTA of her chest. We chose not to do this and avoid increased dye load and further radiation. She already has a known pulmonary embolus and needs to be back on her medications anyway because she was only on them for 1 month. We will refill her Eliquis. We will start her at the initial dosing because she has been off for over 2 weeks. She also requested assistance with smoking cessation. Lab Data Attestation: I reviewed the patient's lab results. Labs: Laboratory Results - last 24 hr 12/14/20 12/14/20 11:45 11:45 WBC 6.0 RBC 4.57 Hgb 14.0 Hct 42.3 MCV 92.6 MCH 30.6 MCHC 33.1 RDW Std Deviation 40.8 RDW Coeff of Colby 11.9 Plt Count 342 MPV 9.2 Immature Gran % (Auto) 0.200 Neut % (Auto) 44.0 L Lymph % (Auto) 42.2 H Boyle % (Auto) 12.4 H Eos % (Auto) 0.5 Baso % (Auto) 0.7 Absolute Neuts (auto) 2.7 Absolute Lymphs (auto) 2.55 Nucleated RBC % 0 Sodium 139 Potassium 3.6 Chloride 103 Carbon Dioxide 30.0 Anion Gap 6 BUN 19 H Creatinine 0.72 Estim Creat Clear Calc 95.29 Est GFR (MDRD) Af Amer 115 Est GFR (MDRD) Non-Af 95 BUN/Creatinine Ratio 26.6 H Glucose 85 Calcium 9.2 Troponin I High Sens 5 Radiography Diagnostic Testing: Clinical Impression(s) from Imaging Studies Chest X-Ray 12/14/20 12:30 IMPRESSION: No active disease. Electronically Signed: Nik Hamilton MD at 13:02 EDT Tel , Service support , EKG Initial EKG: Comments: EKG done for intermittent chest pain read by me shows a normal sinus rhythm with overall rate of 90. Mild baseline variation. No acute ST elevation or depression. OH interval, QRS duration and QTc are normal. Discharge Plan Triage Chief Complaint: Shortness of Breath ED Provider: Keny Salas Dx/Rx/DC Orders Clinical Impression: Pulmonary emboli, Chest pain Instructions: Pulmonary Embolism Prescriptions: New Eliquis 5 mg tablet 5 mg PO BID Qty: 74 RF: 0 nicotine [Nicoderm CQ] 21 mg/24 hr patch 24 hour 1 patch transdermal DAILY Qty: 14 RF: 0 nicotine [Nicoderm CQ] 14 mg/24 hr patch 24 hour 1 patch transdermal DAILY Qty: 14 RF: 0 nicotine [Nicoderm CQ] 7 mg/24 hr patch 24 hour 1 patch transdermal Q24H Qty: 14 RF: 0 No Action acetaminophen 650 mg tablet extended release 650 mg PO Q8H PRN (Reason: fever or pain) Qty: 30 RF: 0 ibuprofen 600 mg tablet 600 mg PO Q8H PRN PRN (Reason: fever or pain) Qty: 20 RF: 0 ondansetron HCl [Zofran] 4 mg tablet 4 mg PO Q8H PRN (Reason: nausea and vomiting) Qty: 14 RF: 0 buprenorphine-naloxone 2-0.5 mg film 1 film buccal BID RF: 0 Primary Care Provider: Tomas Reyes Referrals: Tomas Reyes MD [Primary Care Provider] - 3-5 Days Disposition Disposition: Home, Self Care
[2020-12-14] MEDS: APIXABAN 5 MG TABLET 10 MG PO (12:19)
[2020-12-14 12:24] LABS: Anion Gap 6 (5-15); BUN 19 mg/dL (7-18); BUN/Creat Ratio 26.6 RATIO (10-20); Calcium,Total 9.2 mg/dL (8.5-10.1); Chloride 103 mmol/L (98-107); Creatinine, Serum 0.72 mg/dL (0.55-1.02); EST Glomerular Filtration Rate 95 mL/min (>60); Est Glom Filt Rate - Afr Amer 115 mL/min (>60); Estimated Creatinine Clearance 95.29 ml/min; Glucose 85 mg/dL (74-106); Potassium 3.6 mmol/L (3.5-5.1); Sodium Level 139 mmol/L (136-145); Troponin-I HS 5 pg/mL (3.0-54.0)
--- NOTE | 2020-12-14 12:30 | RAD_ITS ---
STUDY: X-RAY CHEST REASON FOR EXAM: Female, 40 years old. chest pain TECHNIQUE: Single AP portable view of the chest. COMPARISON: 10/15/2020 FINDINGS: The lungs are clear and expanded. Elevated left hemidiaphragm which is unchanged. Normal size heart. Normal mediastinum and carly. Normal visualized pulmonary arteries. Normal visualized aortic arch and descending thoracic aorta. Normal visualized thoracic spine. Normal visualized ribs, clavicles, and shoulders. There is no demonstrated abnormality of the visualized soft tissue structures of the upper abdomen. RAD/Chest 1 View (Portable) IMPRESSION: No active disease. Electronically Signed: Nik Hamilton MD at 13:02 EDT Tel , Service support ,
== END 2020-12-14 15:58 | disposition home or self-care (01) ==
PROVIDERS: Emergency Provider Emergency Medicine; PCP Family Medicine
DX: I26.99 Other pulmonary embolism without acute cor pulmonale (principal); R07.9 Chest pain, unspecified; M79.89 Other specified soft tissue disorders; F17.210 Nicotine dependence, cigarettes, uncomplicated; Z79.01 Long term (current) use of anticoagulants; Z79.899 Other long term (current) drug therapy; Z86.16 Personal history of COVID-19
CPT/HCPCS: 71045; 80048; 84484; 85025; 93005; 93971; 99285; A4216

== ENCOUNTER 2021-02-26 10:44 | Emergency (ER) | payer MEDICAID, SELFPAY ==
[2021-02-26 10:45] VITALS: BP 138/79; PULSE 99; RESP 14; TEMP 36.7; O2SAT 99; BMI 39.4
--- NOTE | 2021-02-26 11:00 | EKG12_ITS ---
Test Reason : SWOLLEN FEET Blood Pressure : / mmHG Vent. Rate : 088 BPM Atrial Rate : 088 BPM P-R Int : 134 ms QRS Dur : 098 ms QT Int : 370 ms P-R-T Axes : 021 035 058 degrees QTc Int : 447 ms Normal sinus rhythm Normal ECG Confirmed by BREONNA NORTH, TREMAINE ([id number]), acquisition editor ZACARIAS VAZQUEZ ([id number]) on 03/03/2021 10:09:32 AM Referred By: Confirmed By:TREMAINE RAVI MD
--- NOTE | 2021-02-26 11:00 | EX.ED.DYSGE1 ---
HPI History of Present Illness Chief Complaint: Edema Informant: patient Narrative Narrative: 40-year-old female arriving to the emergency department chief complaint of edema. She tells me that over the past week or so she has felt more swelling in her body and a sensation that she was retaining fluids. Yesterday she worked a great job when she was on her feet for about 8 hours. This morning she notes that her legs are significantly swollen. She notes a heaviness in her chest when she walks. Patient was diagnosed with pulmonary embolism in the setting of COVID-19 in November. She has been on Eliquis and due to hives was changed to Lovenox which she has been taking. She denies any known cardiac issues though she has an appointment in May with cardiology. [facility] Medical History (Updated 02/26/21 @ 12:[address] Darinel Ewing DO) Acetabular fracture Anxiety Depressed Hx of substance abuse Lumbar transverse process fracture Thyroid nodule Home Medications ibuprofen 600 mg PO Q8H PRN PRN #20 tablet 10/15/20 [Rx Last Taken Unknown] atomoxetine 40 mg PO DAILY 02/26/21 [History Last Taken Unknown] buprenorphine-naloxone 1 film SUBLINGUAL BID 02/26/21 [History Last Taken Unknown] duloxetine 60 mg PO DAILY 02/26/21 [History Last Taken Unknown] enoxaparin 150 mg SUBCUT DAILY 02/26/21 [History Last Taken Unknown] furosemide [Lasix] 40 mg PO DAILY #7 tab 02/26/21 [Rx Last Taken Unknown] hydroxyzine pamoate 25 mg PO QHS 02/26/21 [History Last Taken Unknown] sulfamethoxazole-trimethoprim 1 tab PO BID 02/26/21 [History Last Taken Unknown] Allergy/AdvReac Type Severity Reaction Status Date / Time morphine Allergy Hives Verified 02/26/21 10:48 senna [From Senokot] Allergy Hives Verified 02/26/21 10:48 Social History (Updated 02/26/21 @ 11:[address] Darinel Ewing DO) Smoking Status: Current every day smoker tobacco type: cigarettes substance use type: former substance user ROS ROS ED Constitutional Constitutional ED: Denies chills, fever(s) or weight loss Eyes Eyes: Denies change in vision or diplopia ENT ENT ED: Denies ear pain, rhinorrhea or sore throat Cardiovascular Cardiovascular: Reports racing heartbeat; Denies chest pain, orthopnea or palpitations Respiratory/Chest Respiratory/Chest: Denies cough, dyspnea or orthopnea Gastrointestinal Gastrointestinal: Reports abdominal pain, diarrhea and nausea; Denies vomiting Genitourinary Genitourinary ED: Denies dysuria, hematuria or urinary frequency Musculoskeletal Musculoskeletal: Denies arthralgias or myalgias Integumentary Denies abscess or rash Neurologic Neurologic: Denies headache(s) or weakness Psychiatric Psychiatric: Denies anxiety, depression, suicidal ideation or suicidal thoughts Endocrine Endocrinology: Denies polydipsia, polyphagia or polyuria Allergic/Immunologic Allergic/Immunologic ED: Denies mouth swelling, tongue swelling or urticaria EXAM Physical Exam Const Vital Signs: 02/26/21 10:45 02/26/21 11:20 Temperature 98.1 F Temperature Source Temporal Pulse Rate 99 Respiratory Rate 14 Respiratory Pattern Normal Blood Pressure 138/79 H Blood Pressure Mean 98 Pulse Ox 99 Oxygen Delivery Method Room Air Positive well nourished, well developed and obese General Appearance ED: well developed Nutritional Appearance: obese HEENT Reports normocephalic, head/scalp atraumatic, TM's clear and moist mucous membranes Negative for trauma or tenderness Tympanic Membrane ED: Yes TM's clear Eyes PERRL and EOMs intact bilaterally Neck no lymphadenopathy, supple and no JVD Resp normal respiratory effort and clear to auscultation bilaterally Cardio regular rate, regular rhythm and no murmurs GI normal to inspection, nondistended, normoactive bowel sounds and non-tender Palpation: soft Back/Spine no CVA tenderness and normal ROM Extremity Extremity Narrative: Bilateral lower extremity edema. General Extremety ED: Yes edema General Extremity: edema Neuro oriented x3 and CN's II-XII intact bilaterally Sensorium / Orientation: alert Motor Exam: strength 5/5 throughout Psych mental status grossly normal Mood & Affect: Negative for depressed or tearful Skin no rashes or lesions noted and no wounds MDM MDM MDM Narrative Medical decision making narrative: Urinalysis showed a small amount of protein in the urine. Creatinine is normal at 0.71. Her beta natruretic peptide is at 10. Electrolytes are normal. White count 6.5 hemoglobin 13.7. With the patient's recent pulmonary embolism diagnosis and now peripheral edema patient most likely would benefit from a echocardiogram. She has an upcoming appointment with her primary care physician and has a cardiology appointment in May. Patient will discuss this further. Lab Data Attestation: I reviewed the patient's lab results. Labs: Laboratory Results - last 24 hr 02/26/21 02/26/21 02/26/21 11:10 11:10 11:10 WBC 6.5 RBC 4.41 Hgb 13.7 Hct 38.7 MCV 87.8 MCH 31.1 MCHC 35.4 RDW Std Deviation 39.7 RDW Coeff of Colby 12.3 Plt Count 323 MPV 9.6 Immature Gran % (Auto) 0.200 Neut % (Auto) 39.8 L Lymph % (Auto) 44.0 H Stark % (Auto) 14.5 H Eos % (Auto) 0.9 Baso % (Auto) 0.6 Absolute Neuts (auto) 2.6 Absolute Lymphs (auto) 2.87 Nucleated RBC % 0 Sodium 141 Potassium 4.5 Chloride 111 H Carbon Dioxide 25.0 Anion Gap 5 BUN 14 Creatinine 0.71 Estim Creat Clear Calc 96.63 Est GFR (MDRD) Af Amer 116 Est GFR (MDRD) Non-Af 96 BUN/Creatinine Ratio 19.7 Glucose 93 Calcium 9.0 Total Bilirubin 0.40 AST 35 ALT 52 Alkaline Phosphatase 111 Troponin I High Sens 4 B-Natriuretic Peptide 10.0 Total Protein 7.5 Albumin 3.3 Globulin 4.2 Albumin/Globulin Ratio 0.8 L Urine Color Urine Clarity Urine pH Ur Specific [place] Urine Protein Urine Glucose (UA) Urine Ketones Urine Occult Blood Urine Nitrite Urine Bilirubin Urine Urobilinogen Ur Leukocyte Esterase Urine RBC Urine WBC Ur Squamous Epith Cells Urine Bacteria Urine Mucus 02/26/21 11:10 WBC RBC Hgb Hct MCV MCH MCHC RDW Std Deviation RDW Coeff of Colby Plt Count MPV Immature Gran % (Auto) Neut % (Auto) Lymph % (Auto) Stark % (Auto) Eos % (Auto) Baso % (Auto) Absolute Neuts (auto) Absolute Lymphs (auto) Nucleated RBC % Sodium Potassium Chloride Carbon Dioxide Anion Gap BUN Creatinine Estim Creat Clear Calc Est GFR (MDRD) Af Amer Est GFR (MDRD) Non-Af BUN/Creatinine Ratio Glucose Calcium Total Bilirubin AST ALT Alkaline Phosphatase Troponin I High Sens B-Natriuretic Peptide Total Protein Albumin Globulin Albumin/Globulin Ratio Urine Color Yellow Urine Clarity Sl. Cloudy Urine pH 5.0 Ur Specific [place] 1.020 Urine Protein 15 H Urine Glucose (UA) Normal Urine Ketones 5 H Urine Occult Blood Negative Urine Nitrite Negative Urine Bilirubin Negative Urine Urobilinogen Normal Ur Leukocyte Esterase 25 H Urine RBC 0 SEEN Urine WBC 0-5 SEEN Ur Squamous Epith Cells 0-5 SEEN Urine Bacteria 0 SEEN Urine Mucus 0 SEEN EKG Initial EKG: Attestation: I personally reviewed and interpreted this EKG as follows: Interpretation: Sinus Rhythm Comments: Sinus rhythm with a ventricular rate of 88 bpm Discharge Plan Triage Chief Complaint: Edema ED Provider: Darinel Ewnig Dx/Rx/DC Orders Clinical Impression: Lymphedema Instructions: ED Peripheral Edema, Bilateral Prescriptions: New furosemide [Lasix] 40 mg tablet 40 mg PO DAILY Qty: 7 RF: 0 No Action ibuprofen 600 mg tablet 600 mg PO Q8H PRN PRN (Reason: fever or pain) Qty: 20 RF: 0 sulfamethoxazole-trimethoprim 800-160 mg tablet 1 tab PO BID RF: 0 enoxaparin 150 mg/mL syringe 150 mg subcut DAILY RF: 0 hydroxyzine pamoate 25 mg capsule 25 mg PO QHS RF: 0 atomoxetine 40 mg capsule 40 mg PO DAILY RF: 0 duloxetine 60 mg capsule,delayed release(DR/EC) 60 mg PO DAILY RF: 0 buprenorphine-naloxone 8-2 mg film 1 film sublingual BID RF: 0 Primary Care Provider: Tomas Reyes Referrals: Tomas Reyes MD [Primary Care Provider] - [facility] appointment Disposition Disposition: Home, Self Care
[2021-02-26 11:19] LABS: Bacteria 0 SEEN /hpf (None Seen); Mucous, Urine 0 SEEN /hpf (<or=2+); Red Blood Cells-Urine 0 SEEN /hpf (0-5)
[2021-02-26 11:21] LABS: Absolute Lymphocyte Count 2.87 X10^3/uL (0.83-4.51); Absolute Neutrophil Count 2.6 X10^3/uL (2.0-7.7); Basophil# 0.04 X10^3/uL; Basophil% 0.6 % (0-1); Eosinophil# 0.06 X10^3/uL; Eosinophils% 0.9 % (0-5); Hematocrit 38.7 % (37-47); Hemoglobin 13.7 g/dL (12.0-15.0); Lymphocyte # 2.87 X10^3/ul (0.83-4.51); Mean Corp Hgb Conc 35.4 g/dL (32-36); Mean Corpuscular Hgb 31.1 pg (27.0-32.0); Mean Corpuscular Volume 87.8 fL (81-99); Mean Platelet Vol. 9.6 fl (6.2-12.0); Monocyte# 0.95 X10^3/uL; Monocyte% 14.5 % (0-10); NRBC Flagged by Analyzer 0 % (0-5); Neutrophil % 39.8 % (47-70); Platelet Count 323 K/mm3 (150-450); RBC Distribution Width CV 12.3 % (11.6-14.6); RBC Distribution Width SD 39.7 fl (35.1-43.9); Red Blood Count 4.41 M/mm3 (4.2-5.4); White Blood Count 6.5 K/mm3 (4.4-11.0)
[2021-02-26 11:25] LABS: Color, Urine Yellow (Yellow); Glucose, Dipstick Normal (Normal); Ketone-Dipstick 5 mg/dl (Negative); Leukocyte Esterase-Dipstick 25 /ul (Negative); Nitrite-Dipstick Negative (Negative); Occult Blood-Urine Negative /ul (Negative); Protein-Dipstick 15 mg/dl (Negative); Urine Bilirubin Dipstick Negative (Negative); Urine Clarity Sl. Cloudy (Clear); Urine Urobilinogen Normal (Normal)
[2021-02-26 11:32] LABS: Squamous Epithelial Cells - UA 0-5 SEEN /hpf (5-10); White Blood Cells 0-5 SEEN /hpf (0-5)
[2021-02-26 11:47] LABS: ALB/GLOB Ratio 0.8 RATIO (0.9-2.4); AST(SGOT) 35 U/L (15-37); Alanine Aminotransfer ALT/SGPT 52 U/L (13-56); Albumin, Serum 3.3 g/dL (3.2-5.0); Alkaline Phosphatase 111 U/L (45-117); Anion Gap 5 (5-15); BUN 14 mg/dL (7-18); BUN/Creat Ratio 19.7 RATIO (10-20); Chloride 111 mmol/L (98-107); Creatinine, Serum 0.71 mg/dL (0.55-1.02); EST Glomerular Filtration Rate 96 mL/min (>60); Est Glom Filt Rate - Afr Amer 116 mL/min (>60); Estimated Creatinine Clearance 96.63 ml/min; Globulin 4.2 g/dL (2.2-4.2); Glucose 93 mg/dL (74-106); Potassium 4.5 mmol/L (3.5-5.1); Protein, Total 7.5 g/dL (6.4-8.2); Sodium Level 141 mmol/L (136-145); Troponin-I HS 4 pg/mL (3.0-54.0)
== END 2021-02-26 12:18 | disposition home or self-care (01) ==
PROVIDERS: Emergency Provider Emergency Medicine; PCP Family Medicine
DX: I89.0 Lymphedema, not elsewhere classified (principal); E04.1 Nontoxic single thyroid nodule; F32.A Depression, unspecified; F41.9 Anxiety disorder, unspecified; F17.210 Nicotine dependence, cigarettes, uncomplicated; Z79.02 Long term (current) use of antithrombotics/antiplatelets; Z79.899 Other long term (current) drug therapy; Z86.16 Personal history of COVID-19; Z86.711 Personal history of pulmonary embolism
CPT/HCPCS: 80053; 81001; 83880; 84484; 85025; 93005; 99282

== ENCOUNTER 2021-04-21 17:28 | Emergency (ER) | payer MEDICAID, SELFPAY ==
[2021-04-21 17:29] VITALS: BP 147/101; PULSE 106; PULSE 108; RESP 16; RESP 18; TEMP 36.7; O2SAT 96; O2SAT 98
--- NOTE | 2021-04-21 21:03 | CT_ITS ---
STUDY: CTA CHEST REASON FOR EXAM: Female, 40 years old. cp, recent PE RADIATION DOSAGE (If Supplied By Facility): CTDIvol = ( 13.48 ) mGy, DLP = ( 467.70 ) mGycm TECHNIQUE: The examination was performed with the intravenous administration of IV 100mL Isovue-370. Post-processing of the angiographic images was performed, with multiplanar reformation and 3D reconstruction. Individualized dose optimization techniques were used for this CT. COMPARISON: CT chest 10/29/2020 FINDINGS: Adequate density of contrast in the pulmonary arteries but with moderate motion; decreasing diagnostic quality of the exam. No pulmonary artery filling defect to suggest pulmonary embolism. There is no evidence of right heart strain. Normal size heart. No pericardial fluid. No mediastinal or hilar lymphadenopathy. No mass or filling defect. No bronchiectasis. No peribronchial thickening. Significant asymmetric elevation left hemidiaphragm with some mass effect on the heart and left hilar structures. This is unchanged with the prior exam. No airspace opacity or abnormal interstitial pattern. No nodule or mass. No pleural effusion or pneumothorax. Thyroid gland and base of the neck are within normal limits. No axillary lymphadenopathy. No fracture or focal osseous lesion. Mild focal lateral curvature upper thoracic spine, convex right. This is unchanged. With prior exam. Visualized solid and hollow viscus organs are within normal limits of the exam. CT/CTA Chest W/WO Contrast IMPRESSION: No pulmonary embolism. No acute cardiopulmonary disease. Significant, asymmetric elevation left hemidiaphragm, unchanged. Electronically Signed: Juma Flynn DO at 22:46 EST ,
--- NOTE | 2021-04-21 21:04 | EKG12_ITS ---
Test Reason : CP Blood Pressure : / mmHG Vent. Rate : 093 BPM Atrial Rate : 093 BPM P-R Int : 122 ms QRS Dur : 098 ms QT Int : 320 ms P-R-T Axes : 015 038 091 degrees QTc Int : 397 ms Sinus rhythm with marked sinus arrhythmia Nonspecific T wave abnormality Abnormal ECG Confirmed by BREONNA NORTH, TREMAINE ([id number]), editor continuity and script ZACARIAS VAZQUEZ ([id number]) on 04/23/2021 11:47:28 AM Referred By: BALJINDER Confirmed By:TREMAINE RAVI MD
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
[2021-04-21 21:10] VITALS: RESP 16; O2SAT 99
[2021-04-21] MEDS: Ondansetron 4 MG/2 ML Vial IV (21:38)
[2021-04-21] MEDS: LORazepam 2 MG/ML Syringe 0.5 MG IV ×2 (21:39→23:15)
[2021-04-21 22:17] LABS: Absolute Lymphocyte Count 3.06 X10^3/uL (0.83-4.51); Absolute Neutrophil Count 4.8 X10^3/uL (2.0-7.7); Basophil# 0.05 X10^3/uL; Basophil% 0.6 % (0-1); Eosinophil# 0.02 X10^3/uL; Eosinophils% 0.2 % (0-5); Hemoglobin 14.7 g/dL (12.0-15.0); Lymphocyte # 3.06 X10^3/ul (0.83-4.51); Lymphocyte % 34.2 % (19-41); Mean Corp Hgb Conc 36.8 g/dL (32-36); Mean Corpuscular Hgb 31.1 pg (27.0-32.0); Mean Corpuscular Volume 84.6 fL (81-99); Mean Platelet Vol. 10.1 fl (6.2-12.0); Monocyte# 1.03 X10^3/uL; Monocyte% 11.5 % (0-10); NRBC Flagged by Analyzer 0 % (0-5); Neutrophil # 4.76 X10^3/uL (2.7-7.7); Neutrophil % 53.3 % (47-70); Platelet Count 278 K/mm3 (150-450); RBC Distribution Width CV 12.1 % (11.6-14.6); Red Blood Count 4.73 M/mm3 (4.2-5.4); White Blood Count 8.9 K/mm3 (4.4-11.0)
[2021-04-21 22:36] LABS: Anion Gap 5 (5-15); BUN 13 mg/dL (7-18); BUN/Creat Ratio 17.8 RATIO (10-20); Calcium,Total 8.8 mg/dL (8.5-10.1); Chloride 108 mmol/L (98-107); Creatinine, Serum 0.73 mg/dL (0.55-1.02); EST Glomerular Filtration Rate 93 mL/min (>60); Est Glom Filt Rate - Afr Amer 112 mL/min (>60); Estimated Creatinine Clearance 97.63 ml/min; Glucose 105 mg/dL (74-106); Potassium 3.7 mmol/L (3.5-5.1); Sodium Level 140 mmol/L (136-145); Troponin-I HS 5 pg/mL (3.0-54.0)
[2021-04-21] MEDS: proMETHazine 25 MG Tablet PO (23:15)
[2021-04-21 23:25] VITALS: BP 136/94; PULSE 96; RESP 16; O2SAT 98
== END 2021-04-22 00:10 | disposition home or self-care (01) ==
PROVIDERS: Emergency Provider Emergency Medicine; PCP Family Medicine; Visit Provider Emergency Medicine
DX: R07.9 Chest pain, unspecified (principal); F11.23 Opioid dependence with withdrawal; F32.A Depression, unspecified; F41.9 Anxiety disorder, unspecified; F17.210 Nicotine dependence, cigarettes, uncomplicated; Z79.01 Long term (current) use of anticoagulants; Z79.899 Other long term (current) drug therapy; Z86.711 Personal history of pulmonary embolism; Z86.16 Personal history of COVID-19
CPT/HCPCS: 71275; 80048; 84484; 85025; 93005; 96374; 96375; 96376; 99285; J7040; Q9967; A4216; J2405

== ENCOUNTER 2021-10-30 14:14 | Emergency (ER) | payer MEDICAID, SELFPAY ==
[2021-10-30 14:14] VITALS: BP 116/89; PULSE 92; RESP 14; TEMP 37.1; O2SAT 99; BMI 36.0
--- NOTE | 2021-10-30 14:33 | EKG12_ITS ---
Test Reason : CP Blood Pressure : / mmHG Vent. Rate : 095 BPM Atrial Rate : 095 BPM P-R Int : 138 ms QRS Dur : 086 ms QT Int : 338 ms P-R-T Axes : 015 046 071 degrees QTc Int : 424 ms Normal sinus rhythm Normal ECG Confirmed by LUCIO NORTH, MIKO ([id number]), communications editor ZACARIAS VAZQUEZ ([id number]) on 11/03/2021 9:27:59 AM Referred By: Confirmed By:EVELYNE VALDES MD
--- NOTE | 2021-10-30 14:34 | ED.VIS.DYS ---
HPI History of Present Illness Chief Complaint: Shortness of Breath Narrative Narrative: 41-year-old female presenting with dyspnea. She states she has a history of PEs but is anticoagulated on Xarelto currently. She states she has not missed any doses. Previously she was on Lovenox for this. Patient states that she recently had COVID again on the sixth and since that time she has been short of breath with exertion. She does state that sometimes at night she wakes up with some tightness which lasts a couple minutes and then goes away. She also states that she does have a history of anxiety which feels similar to this as well. Patient states she followed up with her barber stylist at [facility] and was told that she does not have any cardiac problems. She states that other than the PEs that she does not have any significant physical medical problems but she does suffer from anxiety and depression [facility] Medical History Acetabular fracture Anxiety COVID Depressed Hx of substance abuse Lumbar transverse process fracture Pulmonary embolism Thyroid nodule Home Medications ibuprofen 600 mg tablet 600 mg PO Q8H PRN PRN fever or pain #20 TABLETS 10/15/20 [Rx Last Taken Unknown] atomoxetine 40 mg capsule 40 mg PO DAILY 02/26/21 [History Last Taken Unknown] buprenorphine 8 mg-naloxone 2 mg sublingual film 1 film sublingual BID 02/26/21 [History Last Taken Unknown] duloxetine 60 mg capsule,delayed release 60 mg PO DAILY 02/26/21 [History Last Taken Unknown] enoxaparin 150 mg/mL subcutaneous syringe 150 mg subcut DAILY 02/26/21 [History Last Taken Unknown] furosemide 40 mg tablet (Lasix) 40 mg PO DAILY #7 tabs 02/26/21 [Rx Last Taken Unknown] hydroxyzine pamoate 25 mg capsule 25 mg PO QHS 02/26/21 [History Last Taken Unknown] sulfamethoxazole 800 mg-trimethoprim 160 mg tablet 1 tab PO BID 02/26/21 [History Last Taken Unknown] Allergy/AdvReac Type Severity Reaction Status Date / Time morphine Allergy Hives Verified 10/30/21 14:18 senna [From Senokot] Allergy Hives Verified 10/30/21 14:18 Social History Smoking Status: Current every day smoker tobacco type: cigarettes substance use type: former substance user ROS ROS ED Constitutional Constitutional ED: Denies chills or fever(s) Eyes Eyes: Denies change in vision or diplopia ENT ENT ED: Denies rhinorrhea or sore throat Cardiovascular Cardiovascular: Reports chest pain, palpitations and racing heartbeat Respiratory/Chest Respiratory/Chest: Reports dyspnea; Denies cough Gastrointestinal Gastrointestinal: Denies abdominal pain or constipation Genitourinary Genitourinary ED: Denies dysuria or hematuria Musculoskeletal Musculoskeletal: Denies arthralgias Integumentary Denies abscess or Abrasions Neurologic Neurologic: Denies headache(s) Psychiatric Psychiatric: Denies anxiety or depression EXAM Physical Exam Const Vital Signs: 10/30/21 14:14 10/30/21 14:46 10/30/21 14:46 Temperature 98.7 F Temperature Source Temporal Pulse Rate 92 Respiratory Rate 14 Respiratory Effort Normal Non-Labored Respiratory Depth Normal Respiratory Pattern Normal Blood Pressure 116/89 H Blood Pressure Mean 98 Pulse Ox 99 Oxygen Delivery Method Room Air Room Air Room Air Positive well nourished General Appearance ED: NAD; Negative for pallor HEENT Reports moist mucous membranes atraumatic Eyes PERRL and EOMs intact bilaterally Neck no lymphadenopathy Resp normal respiratory effort and clear to auscultation bilaterally Cardio regular rate and regular rhythm GI non-tender Extremity General Extremety ED: Negative for edema or tenderness General Extremity: Negative for edema Neuro oriented x3 and CN's II-XII intact bilaterally Sensorium / Orientation: alert Psych Mood & Affect: anxious Skin No no wounds General Skin Exam: Negative for jaundice or pallor MDM MDM MDM Narrative Medical decision making narrative: Patient presenting with dyspnea and intermittent chest pain which he states usually comes at night when she is resting. She does describe a history of anxiety which feels similar. I obtained an EKG and on my interpretation this is a normal sinus rhythm with ventricular rate of 95 bpm without sign of ischemic change or dysrhythmia. The patient's lungs are clear to auscultation bilaterally. Her physical exam is otherwise unremarkable. Her vital signs are within normal limits. Since she is on Xarelto and anticoagulated I do not believe she needs a D-dimer or a PE study. She does state to me that she thinks her legs might be swollen although she has no pitting edema. Again she is anticoagulated so I am not concerned about DVTs. Chest x-ray my interpretation shows no acute cardiopulmonary process and radiologist agree. CBC and BMP are unremarkable. High-sensitivity troponin is 4. Given her ultimately normal work-up do believe she is stable for discharge home. She does not need further blood work or imaging at this time. Impression: 1. Chest pain noncardiac 2. Dyspnea 3. History of anxiety Lab Data Attestation: I reviewed the patient's lab results. Labs: Laboratory Results - last 24 hr 10/30/21 10/30/21 14:50 14:50 WBC 6.8 RBC 4.77 Hgb 14.3 Hct 41.3 MCV 86.6 MCH 30.0 MCHC 34.6 RDW Std Deviation 36.9 RDW Coeff of [place]by 11.6 Plt Count 319 MPV 9.4 Immature Gran % (Auto) 0.100 Neut % (Auto) 40.6 L Lymph % (Auto) 45.4 H [place] % (Auto) 12.5 H Eos % (Auto) 0.7 Baso % (Auto) 0.7 Absolute Neuts (auto) 2.8 Absolute Lymphs (auto) 3.09 Nucleated RBC % 0 Sodium 140 Potassium 4.0 Chloride 105 Carbon Dioxide 29.0 Anion Gap 6 BUN 16 Creatinine 0.65 Estim Creat Clear Calc 108.52 Est GFR (MDRD) Af Amer 128 Est GFR (MDRD) Non-Af 106 BUN/Creatinine Ratio 24.7 H Glucose 103 Calcium 9.2 Troponin I High Sens 4 Radiography Diagnostic Testing: Clinical Impression(s) from Imaging Studies Chest X-Ray 10/30/21 14:55 IMPRESSION: Stable elevation of the left hemidiaphragm with blunting of the left costophrenic angle. There is been no change since prior study. Electronically Signed: Josue Dover MD at 15:09 EDT , Discharge Plan Triage Chief Complaint: Shortness of Breath ED Provider: Franklyn Siddiqui Dx/Rx/DC Orders Prescriptions: No Action ibuprofen 600 mg tablet 600 mg PO Q8H PRN PRN (Reason: fever or pain) Qty: 20 0RF sulfamethoxazole-trimethoprim 800-160 mg tablet 1 tab PO BID enoxaparin 150 mg/mL syringe 150 mg subcut DAILY Label Comments: inject 1 milliliter subcutaneously once daily hydroxyzine pamoate 25 mg capsule 25 mg PO QHS atomoxetine 40 mg capsule 40 mg PO DAILY duloxetine 60 mg capsule,delayed release(DR/EC) 60 mg PO DAILY Label Comments: take 1 capsule by mouth once daily buprenorphine-naloxone 8-2 mg film 1 film sublingual BID Label Comments: dissolve 1 FILM under the tongue twice a day for 7 days furosemide [Lasix] 40 mg tablet 40 mg PO DAILY Qty: 7 0RF Primary Care Provider: Tomas Reyes Referrals: Tomas Reyes MD [Primary Care Provider] -
--- NOTE | 2021-10-30 14:55 | RAD_ITS ---
STUDY: X-RAY CHEST REASON FOR EXAM: Female, 41 years old. Chest pain TECHNIQUE: Single AP portable view of the chest. COMPARISON: Comparison is made with prior study dated 12/14/2020. FINDINGS: EKG electrodes are seen. Stable elevation of the left hemidiaphragm with blunting of the left costophrenic angle. This is unchanged. Normal size heart. Normal mediastinum and carly. Normal visualized pulmonary arteries. Normal visualized aortic arch and descending thoracic aorta. Normal visualized thoracic spine. Normal visualized ribs, clavicles, and shoulders. There is no demonstrated abnormality of the visualized soft tissue structures of the upper abdomen. RAD/Chest 1 View (Portable) IMPRESSION: Stable elevation of the left hemidiaphragm with blunting of the left costophrenic angle. There is been no change since prior study. Electronically Signed: Josue Dover MD at 15:09 EDT ,
[2021-10-30 14:59] LABS: Absolute Lymphocyte Count 3.09 X10^3/uL (0.83-4.51); Absolute Neutrophil Count 2.8 X10^3/uL (2.0-7.7); Basophil# 0.05 X10^3/uL; Basophil% 0.7 % (0-1); Eosinophil# 0.05 X10^3/uL; Eosinophils% 0.7 % (0-5); Hematocrit 41.3 % (37-47); Hemoglobin 14.3 g/dL (12.0-15.0); Lymphocyte # 3.09 X10^3/ul (0.83-4.51); Lymphocyte % 45.4 % (19-41); Mean Corp Hgb Conc 34.6 g/dL (32-36); Mean Corpuscular Volume 86.6 fL (81-99); Mean Platelet Vol. 9.4 fl (6.2-12.0); Monocyte# 0.85 X10^3/uL; Monocyte% 12.5 % (0-10); NRBC Flagged by Analyzer 0 % (0-5); Neutrophil # 2.75 X10^3/uL (2.7-7.7); Neutrophil % 40.6 % (47-70); Platelet Count 319 K/mm3 (150-450); RBC Distribution Width CV 11.6 % (11.6-14.6); RBC Distribution Width SD 36.9 fl (35.1-43.9); Red Blood Count 4.77 M/mm3 (4.2-5.4); White Blood Count 6.8 K/mm3 (4.4-11.0)
[2021-10-30 15:15] LABS: Anion Gap 6 (5-15); BUN 16 mg/dL (7-18); BUN/Creat Ratio 24.7 RATIO (10-20); Calcium,Total 9.2 mg/dL (8.5-10.1); Chloride 105 mmol/L (98-107); Creatinine, Serum 0.65 mg/dL (0.55-1.02); EST Glomerular Filtration Rate 106 mL/min (>60); Est Glom Filt Rate - Afr Amer 128 mL/min (>60); Estimated Creatinine Clearance 108.52 ml/min; Glucose 103 mg/dL (74-106); Sodium Level 140 mmol/L (136-145); Troponin-I HS 4 pg/mL (3.0-54.0)
[2021-10-30 16:00] VITALS: BP 141/81; PULSE 74; RESP 16; TEMP 36.6
== END 2021-10-30 16:01 | disposition home or self-care (01) ==
PROVIDERS: Emergency Provider Student in an Organized Health Care Education/Training Program; PCP Family Medicine; Visit Provider Student in an Organized Health Care Education/Training Program
DX: R07.89 Other chest pain (principal); F32.A Depression, unspecified; F41.9 Anxiety disorder, unspecified; Z79.01 Long term (current) use of anticoagulants; Z79.899 Other long term (current) drug therapy; Z86.711 Personal history of pulmonary embolism; F17.210 Nicotine dependence, cigarettes, uncomplicated
CPT/HCPCS: 71045; 80048; 84484; 85025; 93005; 99285; A4216

== ENCOUNTER → 2022-02-03 | Outpatient (CLI) | payer MEDICAID, SELFPAY ==
[2022-02-04 22:06] LABS: Chlamydia By Nucleic Acid AMP Negative (Negative)
[2022-02-04 22:51] LABS: Gonococcus By Nucleic Acid AMP Negative (Negative)
== END | disposition home or self-care (01) ==
LOC: LABSPEC 11:53
PROVIDERS: PCP Family Medicine; Visit Provider Student in an Organized Health Care Education/Training Program
DX: Z11.3 Encounter for screening for infections with a predominantly sexual mode of transmission (principal)
CPT/HCPCS: 87491; 87591

== ENCOUNTER 2023-05-19 13:30 | Outpatient (RCR) | payer MEDICAID, SELFPAY ==
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
--- NOTE | 2023-05-19 14:42 | HP.OTEVAL_ITS ---
Patient's Visit Information Visit Information Visit Information: PAULINA GUARDADO is a 42 year old F, referred to Occupational Therapy by Dr. Tomas Reyes MD, with a diagnosis of lymphedema. Date of Evaluation: 05/19/23 Occupational Therapist: SERENA Cobian/Holly, CHT Subjective Subjective: This 42 year old female was seen for OT eval with dx of lymphedema pt states she did have covid about 2 years ago and did develop PE x 2 (2020) pt states her dr. did take her off of her blood thinner about a year ago. Pt states she as issues with leg swelling and abdomen swelling. deconditioned pt states she does pilates 3-4 x a week. pt states she does sometimes has increase swelling after her pilates pt states when her legs are really swollen she will take lasicx and it takes about a day to go down. pt states she has not worked since 2018 due to health issues. pt states she has noticed swelling in her legs and ankles since puberty. pt states her maternal grandmother ( hereditary) pt states she did were her compression socks when she had her PE's. pt states she could not find any compression socks that fit her. pt does not know what kind of compression class her socks were. Lymphedema (Circumferential Measure) Mid-foot: right 24cm left 24.5cm Ankle: right 27cm left 28cm Lower calf: right 30cm left 30cm Largest calf: right 43cm left 40cm Below knee: right 41cm left 41cm Lower Limb Functional Index Lower Extremity Functional Score: 59 Goals Goal: Patient will demonstrate adequate knowledge of self-massage by the end of the second week.: Yes Goal: Patient will demonstrate adequate knowledge of skin care and precautions by the end of the first week.: Yes Goal: Patient will demonstrate adequate knowledge of therapeutic exercises by discharge.: Yes Goal: Patient will select an appropriate compression garment and demonstrate adequate knowledge of correct donning technique, care and wearing schedule by discharge.: Yes Goal: Patient will voice understanding of need to replace compression garment every four to six months by discharge.: Yes Rehabilitation General Assessment: pt demo with mild swelling in BLE at this time. pt demo need for skilled OT services 2- 3vists to ed. pt on life long mtg of lymphedema. Today therapist ed. pt on use of compression socks 20-30 mmHg and gave handout. therapist also ed. pt on use of lymph exercise 2-3x a day to stimulate circulation. Therapist ed. pt on to take measurements daily to assess what may trigger more swelling one day vs other days- pt demo understanding- therapist ed. pt when circulation is compromised she would benefit from water aerobics. pt demo understanding. pt to get compression socks and initiate ex. to return in two weeks- pt demo understanding and agree to POC. Rehabilitation Potential: Good Anticipated Interventions Anticipated Interventions: Education re Diagnosis, Education re Life-long lymphedema Management, Education re Skin Care and Precautions, Education re Self Massage Techniques, Education re Correct Donning Tech,Care&Wearing Sched Comp Garments and Home Program Visit Plan Frequency: 1 visit in 2-3 weeks TEXT: Thank you for the opportunity to evaluate your patient. For Medicare and Medicare HMO plans, please review the plan of care and approve it. It will need to be FAXED BACK to us at [phone] for Medicare purposes. Please let me know if there are questions or concerns regarding this plan of care. Physician Signature: Date:
--- NOTE | 2023-08-04 14:27 | HP.PTDCNRP_ITS ---
Patient Information Patient Information: PAULINA GUARDADO was seen in my office for initial evaluation on 05/17/23. The following Plan of Care was established for this patient: POC Established Initial Duration: 4-6 Weeks Anticipated Interventions Patient/Client Instruction: Educate patient on: Condition, Plan of Care and Risk Factors For the Purpose of:: To improve self management Therapeutic Exercise to Include: Strength training, Endurance training, Body mechanics, Postural training, Flexibilty training, Neuromotor development, In an aquatic setting and Dynamic Lumbar Stabilization For the Purpose of:: To decrease pain, To improve muscle performance and motor function, To increase tolerance to activity/condition/position, To improve abil ity of physical actions for home/community/work/leisure, To improve gait and locomotor functions, To increase flexibility/ROM and To improve endurance Last Seen Last Seen: This patient was last seen in our office 05/17/23. Pertinent comments regarding their Physical therapy will appear below: This patient has not returned for follow up since her initial Physical Therapy evaluation. She is appropriate to return to her doctor for further follow up as needed. At this point I will be discontinuing this patient from physical therapy. I would be happy to see this patient again in the future if found appropriate by the physician. Thank you! Salome Lewis, PT, Cert MDT Balance/Gait/Functional tests Balance/Special Test Scores Lower Extremity Functional Score: 19
== END 2023-05-19 19:00 | disposition home or self-care (01) ==
LOC: OT 13:30
PROVIDERS: PCP Family Medicine; Referring Provider Family Medicine; Visit Provider Family Medicine
DX: R53.81 Other malaise (principal); R26.89 Other abnormalities of gait and mobility; I89.0 Lymphedema, not elsewhere classified
CPT/HCPCS: 97162; 97166; 97530

== ENCOUNTER 2024-10-05 12:10 | Emergency (ER) | payer MEDICAID, SELFPAY ==
[2024-10-05 12:10] VITALS: BP 153/100; PULSE 99; RESP 14; TEMP 36.1; O2SAT 99; BMI 39.2
--- NOTE | 2024-10-05 12:46 | EKG12_ITS ---
Test Reason : EDEMA Blood Pressure : */* mmHG Vent. Rate : 88 BPM Atrial Rate : 88 BPM P-R Int : 142 ms QRS Dur : 86 ms QT Int : 330 ms P-R-T Axes : 28 42 71 degrees QTcB Int : 399 ms Normal sinus rhythm Normal ECG Confirmed by CAIN NORTH, CAT ([id number]), associate entertainment editor JANEEN YEE ([id number]) on 10/09/2024 8:18:31 AM Referred By: Confirmed By: CAT BARLOW MD
--- NOTE | 2024-10-05 12:46 | CT_ITS ---
PROCEDURE: CTA CHEST W/WO CONTRAST 10/05/2024 REASON FOR EXAM: PE, HISTORY OF PE TECHNIQUE: CTA CHEST W/WO CONTRAST Multiplanar Sagittal and Coronal images were obtained. 3D post processing was performed CONTRAST: Isovue 370 VOLUME: 100 mL One or more dose reduction techniques were used (e.g., Automated exposure control, adjustment of the mA and/or kV according to patient size, use of iterative reconstruction technique). RADIATION DOSE SUMMARY: CTDlvol: 9.85 mGy DLP: 499.28 mGycm COMPARISON: Prior study dated April 21, 2021. FINDINGS: Hardware: None Lymph nodes: No lymph nodes are seen. Heart: The heart is nonenlarged. Thoracic Aorta: Unremarkable Pulmonary Vessels: No evidence of pulmonary embolism. Lungs and Airways: Once again, there is a marked degree of elevation of the left hemidiaphragm. Pleura: No pleural effusion. Upper Abdomen: Unremarkable Bones: Degenerative changes of the thoracic spine. CT/CTA Chest W/WO Contrast IMPRESSION: No evidence of pulmonary embolism. Marked degree of elevation of the left hemidiaphragm. Reading Location: [id number]
--- NOTE | 2024-10-05 12:47 | VDLE_ITS ---
Reason For Study Reason For Study: Bilateral leg edema RIGHT LEFT GSV is normal. GSV is normal. CFV is compressible, spontaneous, phasic, competent CFV is compressible, spontaneous, phasic, competent, and demonstrates normal augmentation. and demonstrates normal augmentation. FV is compressible, spontaneous, phasic, competent FV is compressible, spontaneous, phasic, competent and demonstrates normal augmentation. and demonstrates normal augmentation. POP V is compressible, spontaneous, phasic, competent POP V is compressible, spontaneous, phasic, competent and demonstrates normal augmentation. and demonstrates normal augmentation. T/P Trunk is compressible. T/P Trunk is compressible. PTV is compressible. PTV is compressible. RT PerV is compressible. LT PerV is compressible. Procedure This is a venous duplex using B-mode, color flow and spectral Doppler. Exam performed in department. A preliminary report was called and/or faxed to Dr. Mccain. VL/Venous Duplex US - Phillip Extrem Interpretation Summary Deep veins of the lower extremities are bilaterally patent and compressible seg mentally. There is no evidence of deep vein thrombosis on either side. Valvular competence appears intact within the p roximal deep venous systems bilaterally. The great saphenous veins appear bilaterally patent and compressible segmentall y. Ordering Physician: Geoff Mccain Referring Physician: MD Amy Tomas Performed By: Corinne Solo RVT
[2024-10-05 13:03] LABS: Hematocrit 38.9 % (37-47); Hemoglobin 13.5 g/dL (12.0-15.0); Immature Granulocytes Count 0.010 X10^3/uL (0.0-0.0); Mean Corp Hgb Conc 34.7 g/dL (32-36); Mean Corpuscular Volume 89.4 fL (81-99); Mean Platelet Vol. 9.3 fl (6.2-12.0); NRBC Flagged by Analyzer 0 % (0-5); POSITIVE MORPHOLOGY YES; Platelet Count 289 K/mm3 (150-450); RBC Distribution Width CV 11.9 % (11.6-14.6); RBC Distribution Width SD 38.7 fl (35.1-43.9); Red Blood Count 4.35 M/mm3 (4.2-5.4); White Blood Count 5.5 K/mm3 (4.4-11.0)
--- NOTE | 2024-10-05 13:24 | EX.ED.DYSGE1 ---
HPI History of Present Illness Chief Complaint: Edema Narrative Narrative: Chief complaint and HPI: Bilateral lower extremity edema. 44-year-old female with past medical history of anxiety, depression, previous PE from COVID-19 infection not on anticoagulation presents for evaluation of bilateral lower extremity edema. Onset several days ago. She endorses occasional calf cramping bilaterally. Denies any history of CHF. Denies any recent travel. Denies any fever, chills, URI symptoms. States that she has occasionally been getting intermittent chest pain and shortness of breath. Concerned that she has a PE. Review of systems: See HPI Medications: As listed on the chart Allergies: As listed on the chart PFSH: Per chart Vital signs: As listed on the chart. Reviewed. Physical exam: Gen: A&O x3, NAD Head: Normocephalic, atraumatic Eyes: No sclera icterus, conjunctiva clear ENT: Moist mucous membranes Neck: Trachea midline, No JVD CV: RRR, no murmurs, bilateral nonpitting edema of the lower extremities-DP/PT pulses +2 bilaterally Resp: Lungs CTA BL, no w/r/c GI: Abd soft, non-distended, non-tender, no r/r/g Musc: Full ROM, no deformity Skin: Warm, dry Neuro: Alert, oriented, grossly intact, sensation intact Psych: Cooperative, appropriate mood and affect [facility] Medical History Acetabular fracture Anxiety COVID Depressed Hx of substance abuse Lumbar transverse process fracture Pulmonary embolism Thyroid nodule Home Medications ?Medication ?Instructions ?Recorded ?Last Taken ?Type buprenorphine 8 mg-naloxone 2 mg 1 film sublingual BID 02/26/21 10/05/24 History sublingual film dulaglutide 3 mg/0.5 mL 3 mg subcut QWEEK 10/05/24 10/01/24 History subcutaneous pen injector (Trulicity) phentermine 37.5 mg tablet 37.5 mg PO DAILY 10/05/24 10/05/24 History Allergy/AdvReac Type Severity Reaction Status Date / Time morphine Allergy Hives Verified 10/05/24 12:11 senna (From [employer]) Allergy Hives Verified 10/05/24 12:11 Family History no significant family his Social History Smoking Status: Current every day smoker tobacco type: cigarettes substance use type: former substance user EXAM Physical Exam Const Vital Signs: 10/05/24 12:10 10/05/24 13:07 10/05/24 14:46 Temperature 97 F L Temperature Source Temporal Pulse Rate 99 81 Respiratory Rate 14 Respiratory Effort Normal Non-Labored Respiratory Pattern Normal Blood Pressure 153/100 H 131/97 H Blood Pressure Mean 117 108 Pulse Ox 99 96 Oxygen Delivery Method Room Air Room Air 10/05/24 16:02 Temperature 97 F L Temperature Source Pulse Rate 81 Respiratory Rate 14 Respiratory Effort Respiratory Pattern Blood Pressure 131/97 H Blood Pressure Mean 108 Pulse Ox 96 Oxygen Delivery Method MDM MDM MDM Narrative Medical decision making narrative: 44-year-old female with past medical history of anxiety, depression, previous PE from COVID-19 infection not on anticoagulation presents for evaluation of bilateral lower extremity edema. Onset several days ago. She endorses occasional calf cramping bilaterally. Concern for PE per patient. Differential diagnosis includes but is not limited to peripheral edema, venous insufficiency, DVT, ACS, CHF, PE. Given patient has a history of PE and states this feels similar will obtain CTA chest as well as bilateral lower extremity venous duplexes. Basic labs ordered. EKG reviewed see below. CBC unremarkable. BMP unremarkable. BNP unremarkable. Troponin unremarkable x 2. CT of the chest shows no PE. Bilateral duplex venous ultrasounds negative for DVT. At this point in time, no clear etiology for patient's bilateral peripheral edema. On reevaluation, patient is asymptomatic. Her vitals have remained stable other than mild hypertension. May be secondary to dependent swelling versus venous insufficiency. Recommend [id number] compression stockings. Elevation of the legs. Follow-up with primary care physician. Patient current mention of plan. Patient stable to discharge home. Return precautions explained. EKG: Interpreted by me/EM physician: EKG shows normal sinus rhythm without acute ischemic changes. Heart rate 80. Impression: 1. Bilateral peripheral edema 2. Episodic chest pain and dyspnea Lab Data Labs: Laboratory Results - last 24 hr 10/05/24 10/05/24 12:57 14:40 WBC 5.5 RBC 4.35 Hgb 13.5 Hct 38.9 MCV 89.4 MCH 31.0 MCHC 34.7 RDW Std Deviation 38.7 RDW Coeff of Colby 11.9 Plt Count 289 MPV 9.3 Immature Gran % (Auto) 0.200 Neut % (Auto) 44.3 L Lymph % (Auto) 41.7 H Haskell % (Auto) 12.9 H Eos % (Auto) 0.4 Baso % (Auto) 0.5 Absolute Neuts (auto) 2.4 Absolute Lymphs (auto) 2.29 Nucleated RBC % 0 Atypical Lymphocytes 2+ Reactive Lymphocytes 1+ Platelet Estimate A Plt Morphology Comment LARGE Sodium 136 Potassium 4.1 Chloride 102 Carbon Dioxide 26.0 Anion Gap 8 BUN 16 Creatinine 0.59 L Estim Creat Clear Calc 155.04 Est GFR (MDRD) Non-Af 112 BUN/Creatinine Ratio 26.3 H Glucose 102 H Calcium 9.1 Troponin T High Sens < 6 Troponin T Hi Sens 2 Hr < 6 NT pro BNP II 68 Radiography Diagnostic Testing: Clinical Impression(s) from Imaging Studies Chest CTA 10/05/24 12:46 IMPRESSION: No evidence of pulmonary embolism. Marked degree of elevation of the left hemidiaphragm. Reading Location: [id number] Discharge Plan Triage Chief Complaint: Edema ED Provider: Geoff Mccain Dx/Rx/DC Orders Clinical Impression: Bilateral leg edema Instructions: ED Peripheral Edema, Bilateral Prescriptions: No Action buprenorphine-naloxone 8-2 mg film 1 film sublingual BID Patient Comments: dissolve 1 FILM under the tongue twice a day for 7 days phentermine 37.5 mg tablet 37.5 mg PO DAILY Trulicity 3 mg/0.5 mL pen injector 3 mg subcut QWEEK Primary Care Provider: Tomas Reyes Referrals: Tomas Reyes MD [Primary Care Provider] - 3-5 Days Activity Restrictions/Additional Instructions: At this point, no reason for your lower extremity swelling. Follow-up with your primary care physician. Return back to the ED as symptoms change or worsen. Recommend [id number] compression stockings. Elevation of the legs Print Language: Slovak Disposition Disposition: Home, Self Care Discharge Date/Time: 10/05/24 16:04
[2024-10-05 13:28] LABS: Troponin T High Sensitivity < 6 ng/L (<=14)
[2024-10-05 13:30] LABS: Anion Gap 8 (5-15); BUN 16 mg/dL (4-19); BUN/Creat Ratio 26.3 RATIO (10-20); Calcium,Total 9.1 mg/dL (7.6-11.0); Carbon Dioxide 26.0 mmol/L (21.0-32.0); Chloride 102 mmol/L (98-108); Estimated Creatinine Clearance 155.04 ml/min (50-250); Glucose 102 mg/dL (70-99); Potassium 4.1 mmol/L (3.3-5.1); Pro- Brain NATRIURETIC PEPTIDE 68 pg/mL (<=450)
[2024-10-05 13:31] LABS: Differential Indicated SCAN CRITERIA MET
[2024-10-05 13:35] LABS: Reactive Lymphocyte 1+
[2024-10-05 14:46] VITALS: BP 131/97; PULSE 81; O2SAT 96
[2024-10-05 15:44] LABS: Troponin T High Sens 2 HR < 6 ng/L (<=14)
[2024-10-05 16:02] VITALS: BP 131/97; PULSE 81; RESP 14; TEMP 36.1; O2SAT 96
== END 2024-10-05 16:04 | disposition home or self-care (01) ==
PROVIDERS: Emergency Provider Surgery; PCP Family Medicine; Visit Provider Surgery
DX: R60.0 Localized edema (principal); F17.210 Nicotine dependence, cigarettes, uncomplicated; R07.9 Chest pain, unspecified; R06.00 Dyspnea, unspecified
CPT/HCPCS: 71275; 80048; 83880; 84484; 85025; 93005; 93970; 99283; Q9967; A4216